=== PATIENT | female | born 1940 | race Caucasian/White ===

== ENCOUNTER → 2017-01-06 | Outpatient (CLI) | payer MEDICARE, BC ==
[2017-01-06 14:14] LABS: BASOPHILS # (AUTO) 0.1 T/MM3 (0-0.2); BASOPHILS % (AUTO) 0.8 % (0-2); EOSINOPHILS # (AUTO) 0.1 T/MM3 (0-0.5); EOSINOPHILS % (AUTO) 1.6 % (0-4); HCT - HEMATOCRIT 35.5 % (36-46); HGB - HEMOGLOBIN 11.7 GM/DL (12-16); IMMATURE GRANULOCYTE # (AUTO) 0.01 T/MM3 (0.00-0.03); IMMATURE GRANULOCYTE % (AUTO) 0.2 % (0.0-0.5); LYMPHOCYTES % (AUTO) 16.8 % (23-45); MEAN CORPUSCULAR HGB 32.3 UUG (26-34); MEAN CORPUSCULAR VOLUME 98.1 UM3 (80-100); MEAN PLATELET VOLUME 8.7 UM3 (9.4-12.4); MONOCYTES # (AUTO) 0.4 T/MM3 (0-0.8); MONOCYTES % (AUTO) 6.1 % (0-9.0); NEUTROPHILS #(AUTO)-ABSOLUTE 4.6 T/MM3 (1.8-7.7); NEUTROPHILS % (AUTO) 74.5 % (33-66); RED BLOOD COUNT 3.62 M/MM3 (4.00-5.20); WBC - WHITE BLOOD COUNT 6.2 T/MM3 (4.5-11.0)
[2017-01-06 14:23] LABS: ALBUMIN 4.2 G/DL (3.5-5.0); ALBUMIN/GLOBULIN RATIO 1.4 RATIO (1.1-2.2); ALKALINE PHOSPHATASE 54 U/L (38-126); ALT (SGPT) 19 U/L (9-52); ANION GAP 11 MEQ/L (5-15); AST (SGOT) 29 U/L (14-36); BUN/CREATININE RATIO 26 RATIO (6-26); CALCIUM 9.4 MG/DL (8.4-10.2); CHLORIDE 105 MEQ/L (98-107); CO2 - CARBON DIOXIDE 30 MEQ/L (22-30); CREATININE 0.8 MG/DL (0.7-1.2); GLOMERULAR FILTRATION RATE 70; GLUCOSE 105 MG/DL (65-110); LDH 479 U/L (313-618); MAGNESIUM 2.2 MG/DL (1.6-2.3); POTASSIUM 4.1 MEQ/L (3.6-5); SODIUM 146 MEQ/L (134-144); TOTAL PROTEIN 7.3 G/DL (6.3-8.2)
== END ==
LOC: LAB 13:36
PROVIDERS: ATTEND Internal Medicine Hematology & Oncology
DX: D50.8 Other iron deficiency anemias (principal)
CPT/HCPCS: 36415; 80053; 83615; 83735; 85025

== ENCOUNTER 2017-02-18 16:02 | Observation (INO) | payer MEDICARE, BC ==
[~2017-02-18] VITALS: Ht 154.9 cm; Wt 41.2 kg
--- NOTE | 2017-02-18 00:15 | NUR ---
Blood Transfusion Started first unit of PCs. Pt denies any s/s of transfusion reaction at this time. Vital signs stable. Will continue to monitor. Addendum: 02/19/17 at 1424 by AYLA BOWEN RN TIME OF THIS NOTE IS INCORRECT. TIME INTENDED TO BE NOTED AT 2105 ON 02/18/17.
[2017-02-18] MEDS ORDERED: ACETAMINOPHEN 325 MG TABLET PO PRN (16:30)
[2017-02-18] MEDS ORDERED: ONDANSETRON 4mg/2ml INJECTION IV PRN (16:30)
[2017-02-18] MEDS ORDERED: FUROSEMIDE 20 MG/2 ML INJECTION IV ONE (16:30)
[2017-02-18] MEDS ORDERED: DiphenhydrAMINE 25 MG CAPSULE PO ONE (16:30)
[2017-02-18] MEDS ORDERED: MILK OF MAGNESIA 30 ML SUSP PO PRN (16:30)
[2017-02-18] MEDS ORDERED: BISACODYL 10 MG SUPPOSITORY RECTALLY PRN (16:30)
--- NOTE | 2017-02-18 17:02 | HPPDOC ---
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 Hgb in December was 11.7. She has iron deficiency anemia, and received IV iron in August 2016. She was seen in Dr. Alba's office and her hgb was 6.8. She was minimally orthostatic with SBP dropping from 97 to 88 mm Hg. WBC was normal at 9.9; hct was 22.5; plt 559, retic was 4%. UA was negative for UTI. Chemistries: Na 144, K 3.7, CO2 27, BUN 19, Cr 0.8, glu 102, ca 9.1, LFTs normal, LDH 357. Past Medical History Past Medical History Patient's Medical History: (1) Iron deficiency anemia Current Medications Home Meds Reported Medications Cyanocobalamin/FA/Pyridoxine (Folbee Tablet) 1 Tab Tablet, DAILY 02/18/17 Gabapentin (Gabapentin) 100 Mg Capsule, 1 CAP PO TID, CAP 02/18/17 Carbidopa/Levodopa (Carbidopa-Levo ER 50-200 Tab) 1 Each Tablet.er, 1 TAB PO HS , TAB 02/18/17 Carbidopa/Levodopa (Carbidopa-Levo 25-250 mg Odt) 1 Each Tab.rapdis, 0.5 TAB PO Q4HPRN, TAB 02/18/17 Azithromycin (Zithromax) 250 Mg Tablet, 1 TAB PO DAILY, TAB TAKE TWO ON DAY ONE, THEN ONE TAB DAILY UNTIL ALL TAKEN. 02/18/17 Sennosides (Senokot) 8.6 Mg Tablet, 8.6 MG PO DAILY, TAB 02/18/17 Ca Carb/D3/Mag Ox/Redevelopment Manager/Will/Zn (Caltrate+D3 Plus Mineral Minis) 1 Each Tablet, DAILY 02/18/17 Ascorbic Acid (Vitamin C) 60 Mg Lozenge, DAILY 02/18/17 Cyanocobalamin (Vitamin B-12) (Vitamin B-12) 1,000 Mcg Tablet, 1 TAB PO DAILY, # 30 TAB 2 Refills 02/18/17 Aspirin (Aspir 81) 81 Mg Tablet.dr, 1 TAB PO DAILY, #30 TAB 5 Refills 02/18/17 Levothyroxine Sodium (Levothyroxine Sodium) 88 Mcg Tablet, 88 MCG PO ACB, TAB Once daily before breakfast. 02/18/17 Potassium Chloride (Potassium Chloride) 10 Meq Capsule.er, 10 MEQ PO WB, CAP Take 1 capsule, by mouth, daily with breakfast 02/18/17 Allergies: Coded Allergies: NKDA (Verified Allergy, Unknown, 02/18/17) Family History Family History: Will need clarification. Social History Social History Comments Heme/onc - Dr. Alba Review of Systems Unable to Obtain Comments Per Dr. Cote Physical Exam General Comments Per Dr. Cote Assessment & Plan Problems: (1) Iron deficiency anemia Status: Acute Plan/Intensity of Service Admit to observation status under the hospitalist service. Type and cross for 2 units PRBC. Will premedicate with Benadryl and give Lasix in between units. Obtain Hemoccult x3. Consult Dr. Alba. Will try to make arrangements for EGD/colonoscopy. Resume home meds. These preliminary orders were discussed with Dr. Cote and further orders will follow. DVT Prophylaxis: SCD'S Code Status Hospital Course Summary Disclaimer The hospital course summary below is not to be considered part of the above Progress Note. JUDY COTE MD 02/18/17 2002: Past Medical History Current Medications Home Meds Reported Medications Cyanocobalamin/FA/Pyridoxine (Folbee Tablet) 1 Tab Tablet, DAILY 02/18/17 Gabapentin (Gabapentin) 100 Mg Capsule, 1 CAP PO TID, CAP 02/18/17 Carbidopa/Levodopa (Carbidopa-Levo ER 50-200 Tab) 1 Each Tablet.er, 1 TAB PO HS , TAB 02/18/17 Carbidopa/Levodopa (Carbidopa-Levo 25-250 mg Odt) 1 Each Tab.rapdis, 0.5 TAB PO Q4HPRN, TAB 02/18/17 Azithromycin (Zithromax) 250 Mg Tablet, 1 TAB PO DAILY, TAB TAKE TWO ON DAY ONE, THEN ONE TAB DAILY UNTIL ALL TAKEN. 02/18/17 Sennosides (Senokot) 8.6 Mg Tablet, 8.6 MG PO DAILY, TAB 02/18/17 Ca Carb/D3/Mag Ox/Redevelopment Manager/Will/Zn (Caltrate+D3 Plus Mineral Minis) 1 Each Tablet, DAILY 02/18/17 Ascorbic Acid (Vitamin C) 60 Mg Lozenge, DAILY 02/18/17 Cyanocobalamin (Vitamin B-12) (Vitamin B-12) 1,000 Mcg Tablet, 1 TAB PO DAILY, # 30 TAB 2 Refills 02/18/17 Aspirin (Aspir 81) 81 Mg Tablet.dr, 1 TAB PO DAILY, #30 TAB 5 Refills 02/18/17 Levothyroxine Sodium (Levothyroxine Sodium) 88 Mcg Tablet, 88 MCG PO ACB, TAB Once daily before breakfast. 02/18/17 Potassium Chloride (Potassium Chloride) 10 Meq Capsule.er, 10 MEQ PO WB, CAP Take 1 capsule, by mouth, daily with breakfast 02/18/17 Allergies: Coded Allergies: NKDA (Verified Allergy, Unknown, 02/18/17) Assessment & Plan Problems: (1) Iron deficiency anemia Status: Acute (2) Restless leg syndrome (3) DDD (degenerative disc disease) (4) Hypothyroidism (5) Back pain (6) DJD (degenerative joint disease) Assessment HPI: Mrs. Plaza was seen with 3 children at bedside. She complains of having no energy for 3-4 months but denies any recognition of blood loss including black stools, hematochezia, hematuria, or hemoptysis. She reports occasional heartburn but indicates this is infrequent. Her appetite is okay although she's lost about 15-20 pounds over the past year which family members indicate they' ve attributed to of her about a year ago. The patient describes feeling dizzy when she stands or bends and was mildly orthostatic and Dr. Alba 's office today supine blood pressure 97/48 and upright blood pressure 88/53 with corresponding 8 point increase in pulse. The patient had a hemoglobin of 7.8 on 02/14/17 at which time iron level was 15 with iron saturation of 4% and ferritin was 26. Hemoglobin and Dr. Alba's office today had dropped to 6.[address] Alba reports past bone marrow biopsy demonstrated absent iron stores. PMH: Iron deficiency anemia, hypothyroidism, DJD/DDD with prior epidural steroid injections, restless leg syndrome, possible Parkinson's disease, chronic low blood pressure PSH: Bilateral cataract extractions in October and December 2016 SH: No alcohol, tobacco, or illicit drug use. The patient was about a year ago. FH: Son of metastatic bladder cancer, father of prostate cancer and diabetes, mother had Parkinson's disease with dementia, and several siblings had diabetes. ROS: 10 point review completed with patient describing significant back pain, numbness in her legs, irritability in her legs, and difficulty sleeping. She's had a recent cough for which she was treated with antibiotics with minimal residual cough. She has generalized arthralgias. She describes some weakness in her right leg which she attributes to back disease. She has occasional discomfort in the right upper quadrant associated with straining at bowel movement. Remainder of review of systems is as per history of present illness or negative. EXAM: General-slender female, uncomfortable and pacing in the room, alert. Temperature 96.4, blood pressure 118/58, pulse 91 HEENT-PERRL, EOMI without nystagmus, conjugate gaze, facial structures symmetric , oropharynx clear, neck supple and without adenopathy Lungs-respirations nonlabored, good airflow, breath sounds clear Cardiac-regular rhythm, S1-S2 Abd-soft, nontender, Christianson's sign negative and no mass palpable right upper quadrant or elsewhere in the abdomen, bowel sounds diminished but present Ext-without edema Skin-mild generalized hyperpigmentation without focal rash or ulceration Neuro-cranial nerves III through XII grossly intact, sensation intact to light touch 4 extremities, no tremor present at rest, motor tone normal, ambulating without assistance. Psych-slightly anxious A/P: Symptomatic anemia with 1 mg/dL drop over the past 4-5 days. No obvious blood loss. Transfuse 2 units packed red blood cells, check Hemoccults. CT abdomen/pelvis to exclude intra-abdominal pathology. Will need upper endoscopy as this is not been performed previously-had colonoscopy approximately one year ago which was negative per verbal report of Dr. Alba. Colonoscopy may need to be repeated but patient is opposed to consideration of the same currently. Initiate treatment with PPI as a precaution. Surgical consult in a.m. to facilitate EGD. Plan/Intensity of Service Discussed with Dr. Alba, outpatient records reviewed, discussed with Dr. Kemp. Laboratory data reviewed/ordered. Hospital Course Summary Hospital Course Summary 02/18/17 Symptomatic anemia with 1 mg/dL drop over the past 4-5 days. No obvious blood loss. Transfuse 2 units packed red blood cells, check Hemoccults. CT abdomen/pelvis to exclude intra-abdominal pathology. Will need upper endoscopy as this is not been performed previously-had colonoscopy approximately one year ago which was negative per verbal report of Dr. Alba. Colonoscopy may need to be repeated but patient is opposed to consideration of the same currently. Initiate treatment with PPI as a precaution. Surgical consult in a.m. to facilitate EGD. SHELL JOSEPH APRN February 18, 2017 16:23 JUDY COTE MD February 18, 2017 20:02
--- OUTSIDE RECORDS SUMMARY | 2017-02-18 17:28 | XMS REPORT | Summary of Care ---
Author Author Yoel العلي M.D. Organization Unknown Address [address], [place] [id number] Phone Unavailable Care Team Providers Care Hospital Orderly Name Role Phone Cheikh Chao D.O. Unavailable Unavailable Galdino العلي M.D. Unavailable Unavailable Cheikh Chao PP Unavailable Unavailable Unavailable Functional Status Functional Status Health Issues* Name Dates Details Functional status health issues are not documented Status: Cognitive Status Health Issues* Name Dates Details Cognitive status health issues are not documented Status: Problems Name Dates Details Joint Pain In The Right Hip Status: Active Diarrhea (787.91, R19.7) Status: Active Abdominal pain (789.00, R10.9) Status: Active Osteoporosis (733.00, M81.0) Status: Active Hypothyroidism (244.9, E03.9) Status: Active Acute sinusitis (461.9, J01.90) Status: Active Carpal tunnel syndrome (354.0, G56.00) Status: Active Hypokalemia (276.8, E87.6) Status: Active Lumbago (724.2, M54.5) Status: Active Primary localized osteoarthrosis of the hip, right (715.15, M16.11) Status: Active Hyperlipidemia (272.4, E78.5) Status: Active Bursitis of right hip (726.5, M70.71) Status: Active 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 Quantity: 225 Yoel العلي M.D.* Started 01-Dec-2009 ActiveLevothyroxine Sodium 100 MCG Oral Tablet take one tablet by mouth every day * Quantity: 90 Refills: 3 Cheikh Chao D.O.* Started 01-Dec-2009 ActiveSenokot 8.6 MG Oral Tablet TAKE 2 TABLET Bedtime * Refills: 0 Cheikh ChaoO.* Started 17-Nov-2011 ActiveProlia 60 MG/ML Subcutaneous Solution INJECT SUBCUTANEOUSLY 60 MG / 1 ML EVERY 6 MONTHS * Refills: 0 Cheikh Chao D.O.* Started 17-Nov-2011 ActivePotassium Chloride ER 10 MEQ Oral Capsule Extended Release TAKE ONE CAPSULE BY MOUTH EVERY DAY * Quantity: 90 Refills: 3 Cheikh Chao D.O.* Started 15-Feb-2012 Active Allergies and Adverse Reactions Name Dates Details No Known Drug Allergies Status: Active Past Medical History Name Dates Details History of abnormal weight loss (V13.89, Z87.898) Status: Resolved History of constipation (V12.79, Z87.19) Status: Resolved History of low back pain (V13.59, Z87.39) Status: Resolved History of Neck stiffness (723.5, M43.6) Status: Resolved History of Numbness (782.0, R20.0) Status: Resolved History of Pain in hand (729.5, M79.643) Status: Resolved History of Temporomandibular joint pain (524.62, M26.62) Status: Resolved History of thyroid disease (V12.29, Z86.39) Status: Resolved History of Visual impairment (369.9, H54.7) Status: Resolved Procedures Procedure Dates Details History of Dilation And Curettage History of Hand Surgery History of Tonsillectomy Procedures not documented Immunization Name Dates Details Immunizations not documented Family History Mother* Name Dates Details Family history of Parkinson Disease Status: Active Father* Name Dates Details Family history of Prostate Cancer (V16.42) Status: Active Family history of Diabetes Mellitus (V18.0) Status: Active Sister* Name Dates Details Family history of Diabetes Mellitus (V18.0) Status: Active Family history of Restless Legs Syndrome Status: Active Brother* Name Dates Details Family history of Diabetes Mellitus (V18.0) Status: Active Social History Name Dates Details Smoking Status* Never smoker Vital Signs Date Test Result Details 20-Dec-2014 09:22 BP Systolic 124 mm[Hg] Status: BP Diastolic 68 mm[Hg] Status: Heart Rate 60 /min Status: Weight 92.4 lb Status: Body Mass Index Calculated 18.05 kg/m2 Status: Body Surface Area Calculated 1.34 m2 Status: Results Date Description Value Details Results not documented Plan of Care Planned Observations* Name Dates Details Planned Goals not documented Goal Planned Encounters* Appointment; Provider: Yoel العلي On 23-Jun-2015 10:45 Instructions * Instructions not documented Encounters Appointment; Yoel العلي Encounter Diagnosis: Problem not documented On 20-Dec-2014 09:30 Appointment; Yoel العلي Encounter Diagnosis: Problem not documented On 21-Jun-2014 09:00 Appointment; Cheikh Chao Encounter Diagnosis: Problem not documented On 21-Jan-2014 09:00 Appointment; Neel Coleman Encounter Diagnosis: Problem not documented On 07-Jan-2014 13:45 Appointment; Cheikh Chao Encounter Diagnosis: Problem not documented On 21-Dec-2013 10:15 Appointment; Cheikh Chao Encounter Diagnosis: Problem not documented On 07-Dec-2013 08:45 Appointment; Yoel العلي Encounter Diagnosis: Problem not documented On 23-Nov-2013 09:00 Appointment; Cheikh Chao Encounter Diagnosis: Problem not documented On 08-Oct-2013 10:45 Appointment; Cheikh Chao Encounter Diagnosis: Problem not documented On 06-Aug-2013 11:00 Appointment; Yoel العلي Encounter Diagnosis: Problem not documented On 23-May-2013 08:45 Appointment; Yoel العلي Encounter Diagnosis: Problem not documented On 11:45 Appointment; Yoel العلي Encounter Diagnosis: Problem not documented On 27-Feb-2013 16:00
--- OUTSIDE RECORDS SUMMARY | 2017-02-18 17:28 | XMS REPORT | Summary of Care ---
Author Author Saba Buchanan DPM Organization Unknown Address [address], [place] [id number] Phone Unavailable Care Team Providers Care Project Management Name Role Phone Stephanie Bear M.D. Unavailable Unavailable Cheikh Chao D.O. Unavailable Unavailable Saba Buchanan DPM Unavailable Unavailable Galdino العلي M.D. Unavailable Unavailable Jose Bear Unavailable Unavailable Unavailable Unavailable Functional Status Name Dates Details Functional status health issues are not documented Status: Name Dates Details Cognitive status health issues are not documented Status: Problems Name Dates Details Joint Pain In The Right Hip Status: Active Osteoporosis (733.00, M81.0) Status: Active Hypothyroidism (244.9, E03.9) Status: Active Carpal tunnel syndrome (354.0, G56.00) [...] Sensorineural hearing loss (389.10, H90.5) Status: Active Degenerative disc disease, lumbar (722.52, M51.36) Status: Active Contact dermatitis due to plant (692.6, L25.5) Status: Active Pruritic dermatitis (698.9, L29.9) Status: Active Restless leg syndrome, controlled (333.94, G25.81) Status: Active 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, 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 High risk medication use (V58.69, Z79.899) Status: Active Pain of toe of right foot (729.5, M79.674) Status: Active Bacterial infection of finger or toe (686.9, L08.9) Status: Active Ingrowing nail (703.0, L60.0) Status: Active Dermatophytosis, nail (110.1, B35.1) Status: Active Pain of toe of left foot (729.5, M79.675) Status: Active Difficulty in walking (719.7, R26.2) Status: Active Callus of foot (700, L84) Status: Active Medications Name Dates Details Carbidopa-Levodopa 25-250 MG Oral Tablet Take 1 tab at 7 am and 1/2 tab at 1pm and 7 pm, may repeat one at bedtime or during the night as needed. Quantity: 240 Yoel العلي M.D. Start 01-Dec-2009 Active Levothyroxine Sodium 75 MCG Oral Tablet TAKE 1 TABLET DAILY. * Refills: 0 Jose Bear M.D. Start 01-Dec-2009 Active Senokot 8.6 MG Oral Tablet TAKE 2 TABLET Bedtime * Refills: 0 Cheikh Chao D.O. * Start 17-Nov-2011 Active Prolia 60 MG/ML Subcutaneous Solution INJECT SUBCUTANEOUSLY 60 MG / 1 ML EVERY 6 MONTHS * Refills: 0 Cheikh Chao D.O. * Start 17-Nov-2011 Active Potassium Chloride ER 10 MEQ Oral Capsule Extended Release TAKE ONE CAPSULE BY MOUTH ONCE DAILY * Quantity: 90 Refills: 0 Jose Bear M.D. Start Active TraMADol HCl - 50 MG Oral Tablet TAKE ONE TABLET BY MOUTH EVERY 6 HOURS NEEDED FOR PAIN * Quantity: 30 Refills: 0 Cheikh Chao D.O. Start 23-Jan-2015 Active Iron 240 (27 Fe) MG Oral Tablet Take 1 tablet twice daily * Refills: 0 Yoel العلي M.D. Start 22-Dec-2015 Active Cefadroxil 500 MG Oral Capsule TAKE 1 CAPSULE TWICE DAILY. * Quantity: 28 Refills: 0 Saba Buchanan DPM * Start 10-Feb-2016 Active Terbinafine HCl - 250 MG Oral Tablet TAKE ONE TABLET BY MOUTH ONCE DAILY * Quantity: 90 Refills: 0 Saba Buchanan DPM * Start 15-Jun-2016 Active Allergies and Adverse Reactions Name Dates Details No Known Drug Allergies (Allergy) Status: Active Past Medical History Name Dates [...] Dates Details Immunizations not documented Family History Name Dates Details Family history of Parkinson Disease Status: Active Name Dates Details Family history of Prostate Cancer (V16.42) Status: Active Family history of Diabetes Mellitus (V18.0) Status: Active Name Dates Details Family history of Diabetes Mellitus (V18.0) Status: Active Family history of Restless Legs Syndrome Status: Active Name Dates Details Family history of Diabetes Mellitus (V18.0) Status: Active Social History Name Dates Details - Status: Name Dates Details Never smoker Vital Signs Date Test Result Details No Known Vitals to report Results Date Description Value Details Results not documented Plan of Care Name Dates Details Planned Observations Planned Goals not documented Planned Encounters Appointment; Provider: Yoel العلي M.D. On 23-Jun-2016 11:45 Interventions Provided Medication Changes* Terbinafine HCl - 250 MG Oral Tablet - Renew Instructions Name Dates Details Instructions not documented Encounters Appointment; Saba Buchanan DPM Encounter Diagnosis: Problem not documented On 20-Feb-2016 14:30 Appointment; Saba Buchanan DPM Encounter Diagnosis: Problem not documented On 04-Feb-2016 14:00 Appointment; Yoel العلي M.D. Encounter Diagnosis: Problem not documented On 22-Dec-2015 11:45 Appointment; Lonnie Choi D.O. Encounter Diagnosis: Problem not documented On 24-Jul-2015 08:55 Appointment; Yoel العلي M.D. Encounter Diagnosis: Problem not documented On 23-Jun-2015 10:45 Appointment; Cheikh Chao D.O. Encounter Diagnosis: Problem not documented On 03-Jun-2015 09:30 Appointment; Cheikh Chao D.O. Encounter Diagnosis: Problem not documented On 04-Mar-2015 10:30 Appointment; Cheikh Chao D.O. Encounter Diagnosis: Problem not documented On 06-Feb-2015 10:15 Appointment; Cheikh Chao D.O. Encounter Diagnosis: Problem not documented On 23-Jan-2015 11:00 Appointment; Parvez Booth M.D. Encounter Diagnosis: Problem not documented On 15-Jan-2015 14:00 Appointment; Cheikh Chao D.O. Encounter Diagnosis: Problem not documented On 09-Jan-2015 13:15 Appointment; Yoel العلي M.D. Encounter Diagnosis: Problem not documented On 20-Dec-2014 09:30 Appointment; Yoel العلي M.D. Encounter Diagnosis: Problem not documented On 21-Jun-2014 09:00
--- OUTSIDE RECORDS SUMMARY | 2017-02-18 17:28 | XMS REPORT | Summary of Care ---
Author Author Neel Coleman M.D. Unknown Address Unknown Phone Unavailable Care Team Providers Care Business Communications Instructor Name Role Phone Chema Montoya, Stephanie Unavailable Unavailable Mirza Montoya, Isabel Unavailable Unavailable Cheikh Chao D.O. Unavailable Unavailable Chanel JALLOH, Saba Unavailable Unavailable Jared Montoya, Silvia Unavailable Unavailable Zohra Montoya, Galdino Unavailable Unavailable No Assigned PCP-Pt Confirmed Unavailable Unavailable Unavailable Unavailable Functional Status Name [...] Status: Active Insomnia (780.52, G47.00) Status: Active Degenerative disc disease, lumbar (722.52, M51.36) Status: Active Contact dermatitis due to plant (692.6, L25.5) Status: Active Pruritic dermatitis (698.9, L29.9) Status: Active High risk medication use (V58.69, Z79.899) Status: Active Pain of toe of right foot (729.5, M79.674) Status: Active Bacterial infection of finger or toe (686.9, L08.9) Status: Active Ingrowing nail (703.0, L60.0) Status: Active Dermatophytosis, nail (110.1, B35.1) Status: Active Pain of toe of left foot (729.5, M79.675) Status: Active Callus of foot (700, L84) Status: Active 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, 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 Difficulty in walking (719.7, R26.2) Status: Active Restless leg syndrome, controlled (333.94, G25.81) Status: Active Iron deficiency anemia (280.9, D50.9) Status: Active Acute sinusitis (461.9, J01.90) Status: Active Eustachian tube dysfunction (381.81, H69.80) Status: Active Sinus problem (473.9, J34.9) Status: Active Eye problem (V41.1, H57.9) Status: Active Environmental allergies (V15.09, Z91.09) Status: Active Hoarseness (784.42, R49.0) Status: Active Sensorineural hearing loss, bilateral (389.18, H90.3) Status: Active Tinnitus (388.30, H93.19) Status: Active Bilateral hearing loss due to cerumen impaction (389.8, H61.23) Status: Active Nasal congestion (478.19, R09.81) Status: Active Medications Name Dates Details Carbidopa-Levodopa 25-250 MG Oral Tablet Take 1/2 tab every 4 hours. Quantity: 180 Yoel العلي M.D. * Start 01-Dec-2009 Active Levothyroxine Sodium 75 MCG [...] CAPSULE BY MOUTH ONCE DAILY * Quantity: 1 Refills: 1 Jose Bear M.D. * Start 15-Feb-2012 Active 90 Capsule Extended Release Bottle Terbinafine HCl - 250 MG Oral Tablet TAKE ONE TABLET BY MOUTH ONCE DAILY * Quantity: 90 Refills: 0 Saba Buchanan DPM * Start 15-Jun-2016 Active Ferrous Sulfate 325 (65 Fe) MG Oral Tablet TAKE 1 TABLET TWICE DAILY. * Refills: 0 * Start 23-Jun-2016 Active Calcium Plus Vitamin D3 600-500 MG-UNIT Oral Capsule take 1 capsule daily * Refills: 0 * Start 23-Jun-2016 Active B-12 500 MCG Oral Tablet TAKE 1 TABLET DAILY. * Refills: 0 * Start 23-Jun-2016 Active Vitamin C 500 MG Oral Capsule TAKE 1 CAPSULE DAILY. * Refills: 0 * Start 23-Jun-2016 Active Magnesium 250 MG Oral Tablet TAKE 1 TABLET DAILY. * Refills: 0 * Start 23-Jun-2016 Active Carbidopa-Levodopa ER 50-200 MG Oral Tablet Extended Release TAKE 1 TABLET Bedtime * Quantity: 30 Refills: 5 Yoel العلي M.D. * Start 23-Jun-2016 Active Amoxicillin 500 MG Oral Capsule TAKE 1 CAPSULE 3 TIMES DAILY UNTIL GONE. * Quantity: 30 Refills: 0 Kristian Blue M.D. * Start 12-Oct-2016 End 22-Oct-2016 Active PredniSONE 10 MG Oral Tablet TAKE 4 TABLETS DAILY FOR 2 DAYS,3 TABLETS DAILY FOR 2 DAYS, 2 TABLETS DAILY FOR 2 DAYS AND 1 TABLET DAILY FOR 2 DAYS, THEN STOP. * Quantity: 20 Refills: 0 Kristian Blue M.D. * Start 12-Oct-2016 Active Allergies and Adverse Reactions Name Dates [...] hand (729.5, M79.643) Status: Resolved History of Sensorineural hearing loss (389.10, H90.5) Status: Resolved History of Temporomandibular joint pain (524.62, M26.629) Status: Resolved History of thyroid disease (V12.29, Z86.39) Status: Resolved History of Visual impairment (369.9, H54.7) Status: Resolved Procedures Procedure Dates Details History of Dilation And Curettage History of Hand Surgery History of Tonsillectomy Procedures not documented Immunization Name Dates Details Immunizations not documented Family History Name Dates Details Family history of thyroid disease (V18.19, Z83.49) Comments: Family History Status: Active Name Dates Details Family history of Parkinson [...] smoker Vital Signs Date Test Result Details 21-Oct-2016 11:11 Temperature 97.4 f Status: Comments: Method: Heart Rate 74 /min Status: Comments: Location: ; Weight 92 lb Status: Body Mass Index Calculated 17.97 kg/m2 Status: Body Surface Area Calculated 1.34 m2 Status: 12-Oct-2016 15:57 BP Systolic 110 mm[Hg] Status: BP Diastolic 68 mm[Hg] Status: Temperature 97.9 f Status: Comments: Method: Heart Rate 77 /min Status: Comments: Location: ; Physical Findings 97 Status: Comments: O2 Saturation Results Date Description Value Details Results not documented Plan of Care Name Dates Details Planned Observations Planned Goals not documented Planned Encounters Appointment; Provider: Yoel العلي M.D. On 05-Jan-2017 10:45 Instructions Name Dates Details Instructions not documented Encounters Appointment; Kristian Blue M.D. Encounter Diagnosis: Problem not documented On 12-Oct-2016 15:10 Appointment; Yoel العلي M.D. Encounter Diagnosis: Problem not documented On 23-Jun-2016 11:45 Appointment; Saba Buchanan DPM Encounter Diagnosis: Problem [...]
--- OUTSIDE RECORDS SUMMARY | 2017-02-18 17:29 | XMS REPORT | Summary of Care ---
Author Author Cheikh Chao D.O. Organization Unknown Address [address], [place] [id number] Phone Unavailable Care Team Providers Care Unix Administrator Name Role Phone Cheikh Chao D.O. Unavailable [...] Active Peripheral neuropathy (356.9, G62.9) Status: Active Lower back pain (724.2, M54.5) Status: Active Medications Name Dates Details Carbidopa-Levodopa 25-250 MG Oral Tablet Take 1 tab at 7 am and 1/2 tab at 1pm and 7 pm, february repeat one at bedtime or during the night as needed. Quantity: 225 Yoel العلي M.D.* Started 01-Dec-2009 ActiveLevothyroxine Sodium 100 MCG Oral Tablet take one tablet by mouth every day * Quantity: 90 Refills: 3 Cheikh Chao D.O.* Started 01-Dec-2009 ActiveSenokot 8.6 MG Oral Tablet TAKE 2 TABLET Bedtime * Refills: 0 Cheikh Chao.Kelley.* Started 17-Nov-2011 ActiveProlia 60 MG/ML Subcutaneous Solution INJECT SUBCUTANEOUSLY 60 MG / 1 ML EVERY 6 MONTHS * Refills: 0 Cheikh Chao D.O.* Started 17-Nov-2011 ActivePotassium Chloride ER 10 MEQ Oral Capsule Extended Release TAKE ONE CAPSULE BY MOUTH EVERY DAY * Quantity: 90 Refills: 3 Cheikh Chao D.O.* Started 15-Feb-2012 ActivePredniSONE 20 MG Oral Tablet Take 3 Tabs X's 3 DaysTake 2 Tabs X's 3 DaysTake 1 Tabs X's 3 Days * Quantity: 18 Refills: 0 Cheikh Chao.Kelley.* Started 09-Jan-2015 ActiveCyclobenzaprine HCl - 10 MG Oral Tablet TAKE 1 TABLET AT BEDTIME. * Quantity: 7 Refills: 0 Cheikh Chao.Kelley.* Started 09-Jan-2015 ActiveAcetaminophen-Codeine #3 300-30 MG Oral Tablet TAKE 1 TABLET EVERY 6 HOURS NEEDED FOR PAIN. * Quantity: 30 Refills: 0 Cheikh Chao.Kelley.* Started 09-Jan-2015 ActiveTraMADol HCl - 50 MG Oral Tablet TAKE 1 TABLET EVERY 6 HOURS NEEDED FOR PAIN. * Quantity: 30 Refills: 0 Cheikh Chao D.O.* Started 23-Jan-2015 Active Allergies and Adverse Reactions Name Dates [...] History of Hand Surgery History of Tonsillectomy XRay SPINE-LUMBAR Ordered:23-Jan-2015 MRI LUMBAR SPINE Ordered:23-Jan-2015 Immunization Name Dates Details Immunizations not documented [...] smoker Vital Signs Date Test Result Details 23-Jan-2015 10:48 BP Systolic 110 mm[Hg] Status: BP Diastolic 66 mm[Hg] Status: Heart Rate 60 /min Status: Weight 91.125 lb Status: Body Mass Index Calculated 17.8 kg/m2 Status: Body Surface Area Calculated 1.34 m2 Status: 09-Jan-2015 13:08 BP Systolic 126 mm[Hg] Status: BP Diastolic 62 mm[Hg] Status: Heart Rate 78 /min Status: Weight 93 lb Status: Body Mass Index Calculated 18.16 kg/m2 Status: Body Surface Area Calculated 1.35 m2 Status: Results Date Description Value Details Results not documented Plan of Care Planned Observations* Name Dates Details Planned Goals not documented Goal Planned Encounters* Appointment; Provider: Yoel العلي On 23-Jun-2015 10:45 * Appointment; Provider: Cheikh Chao On 06-Feb-2015 10:15 Instructions * Instructions not documented Encounters Appointment; Cheikh Chao Encounter Diagnosis: Problem not documented On 23-Jan-2015 11:00 Appointment; Parvez Booth Encounter Diagnosis: Problem not documented On 15-Jan-2015 14:00 Appointment; Cheikh Chao Encounter Diagnosis: Problem not documented On 09-Jan-2015 13:15 Appointment; Yoel العلي Encounter Diagnosis: Problem not documented On 20-Dec-2014 09:30 Appointment; Yoel العلي Encounter Diagnosis: Problem not documented On 21-Jun-2014 09:00 Appointment; Cheikh Chao Encounter Diagnosis: Problem not documented On 21-Jan-2014 09:00 Appointment; Neel Coleman Encounter Diagnosis: Problem not documented On 07-Jan-2014 13:45 Appointment; Cheikh Chao Encounter Diagnosis: Problem not documented On 21-Dec-2013 10:15 Appointment; Chiekh Chao Encounter Diagnosis: Problem not documented On [...]
--- OUTSIDE RECORDS SUMMARY | 2017-02-18 17:29 | XMS REPORT | Summary of Care ---
Author Author Chanel JALLOH, [employer] Organization Unknown Address [address], [place] [id number] Phone Unavailable Care Team Providers Care Export Traffic Department Manager Name Role Phone Stephanie Bear M.D. Unavailable Unavailable Cheikh Chao D.O. Unavailable Unavailable Galdino العلي M.D. Unavailable Unavailable Jose Bear PP Unavailable Unavailable Unavailable Functional Status Functional [...] risk medication use (V58.69, Z79.899) Status: Active Dermatophytosis, nail (110.1, B35.1) Status: Active Ingrowing nail (703.0, L60.0) Status: Active Pain of toe of left foot (729.5, M79.675) Status: Active Pain of toe of right foot (729.5, M79.674) Status: Active Difficulty in walking (719.7, R26.2) Status: Active Medications Name Dates Details Carbidopa-Levodopa 25-250 MG Oral Tablet Take 1 tab at 7 am and 1/2 tab at 1pm and 7 pm, may repeat one at bedtime or during the night as needed. Quantity: 240 Yoel العلي M.D.* Started 01-Dec-2009 ActiveLevothyroxine Sodium 75 MCG Oral Tablet TAKE 1 TABLET DAILY. * Refills: 0 Jose Bear M.D.* Started 01-Dec-2009 ActiveSenokot 8.6 MG Oral Tablet TAKE 2 TABLET Bedtime * Refills: 0 Cheikh Chao D.O.* Started 17-Nov-2011 ActiveProlia 60 MG/ML Subcutaneous Solution INJECT SUBCUTANEOUSLY 60 MG / 1 ML EVERY 6 MONTHS * Refills: 0 Cheikh Chao D.O.* Started 17-Nov-2011 ActivePotassium Chloride ER 10 MEQ Oral Capsule Extended Release TAKE ONE CAPSULE BY MOUTH ONCE DAILY * Quantity: 90 Refills: 0 Jose Bear M.D.* Started 15-Feb-2012 ActiveTraMADol HCl - 50 MG Oral Tablet TAKE ONE TABLET BY MOUTH EVERY 6 HOURS NEEDED FOR PAIN * Quantity: 30 Refills: 0 Cheikh Chao D.O.* Started 23-Jan-2015 ActiveIron 240 (27 Fe) MG Oral Tablet Take 1 tablet twice daily * Refills: 0 Yoel العلي M.D.* Started 22-Dec-2015 Active Allergies and Adverse Reactions Name Dates [...] to report Results Date Description Value Details 09-Feb-2016 13:52 LIVER PROFILE 1215 ALK PHOSPHATASE 66 U/L (Better) Range: 46-116 TOTAL BILIRUBIN 0.60 mg/dL (Better) Range: 0.20-1.00 DIRECT BILIRUBIN 0.10 mg/dL (Better) Range: 0.00-0.20 AST 14 U/L (Better) Range: 8-35 ALT 9 U/L (Below low threshold) Range: 14-59 Comments: Please note new reference ranges. Effective 12/19/2014.----- ALBUMIN 3.7 g/dL (Better) Range: 3.4-5.0 TOTAL PROTEIN 7.1 g/dL (Better) Range: 6.4-8.2 Plan of Care Planned Observations* Name Dates Details Planned Goals not documented Goal Planned Encounters* Appointment; Provider: Yoel العلي On 23-Jun-2016 11:45 * Appointment; Provider: Saba Buchanan On 20-Feb-2016 14:30 * Appointment; Provider: Schedule Radiology On 17-Jun-2015 11:20 Instructions * Instructions not documented Encounters Appointment; Saba Buchanan Encounter Diagnosis: Problem not documented On 04-Feb-2016 14:00 Appointment; Yoel العلي Encounter Diagnosis: Problem not documented On 22-Dec-2015 11:45 Appointment; Lonnie Choi Encounter Diagnosis: Problem not documented On 24-Jul-2015 08:55 Appointment; Yoel العلي Encounter Diagnosis: Problem not documented On 23-Jun-2015 10:45 Appointment; Cheikh Chao Encounter Diagnosis: Problem not documented On 03-Jun-2015 09:30 Appointment; Cheikh Chao Encounter Diagnosis: Problem not documented On 04-Mar-2015 10:30 Appointment; Cheikh Chao Encounter Diagnosis: Problem not documented On 06-Feb-2015 10:15 Appointment; Cheikh Chao Encounter Diagnosis: Problem not documented On 23-Jan-2015 11:00 Appointment; Parvez Booth Encounter Diagnosis: Problem not documented On 15-Jan-2015 14:00 Appointment; Cheikh Chao Encounter Diagnosis: Problem not documented On 09-Jan-2015 13:15 Appointment; Yoel العلي Encounter Diagnosis: Problem not documented On 20-Dec-2014 09:30 Appointment; Yoel العلي Encounter Diagnosis: Problem not documented On 21-Jun-2014 09:00
--- OUTSIDE RECORDS SUMMARY | 2017-02-18 17:29 | XMS REPORT | Continuity of Care Document ---
Author Author [facility] Organization [facility] Address Unknown Phone Unavailable Allergies Active Description Code Type Severity Reaction Onset Reported/Identified Relationship to Patient Clinical Status Yes No Known Allergies [id number] N/A N/A Medications Problems Date Dx Coded Attending Type Code Diagnosis Diagnosed By 07/16/2015 W 564.00 Constipation 07/16/2015 W 733.90 Osteopenia 07/16/2015 W V64.06 Vaccination not carried out because of patient refusal 07/16/2015 W V72.31 Gynecological Examination 07/16/2015 W V76.12 Screening for breast cancer - low risk 07/24/2015 W 564.00 Constipation 07/24/2015 W 733.90 Osteopenia 07/24/2015 W V64.06 Vaccination not carried out because of patient refusal 07/24/2015 W V72.31 Gynecological Examination 07/24/2015 W V76.12 Screening for breast cancer - low risk 01/16/2016 W 564.00 Constipation 01/16/2016 W 733.90 Osteopenia 01/16/2016 W V64.06 Vaccination not carried out because of patient refusal 01/16/2016 W V72.31 Gynecological Examination 01/16/2016 W V76.12 Screening for breast cancer - low risk 07/22/2016 W 564.00 Constipation 07/22/2016 W 733.90 Osteopenia 07/22/2016 W V64.06 Vaccination not carried out because of patient refusal 07/22/2016 W V72.31 Gynecological Examination 07/22/2016 W V76.12 Screening for breast cancer - low risk 02/08/2017 W 564.00 Constipation 02/08/2017 W 733.90 Osteopenia 02/08/2017 W V64.06 Vaccination not carried out because of patient refusal 02/08/2017 W V72.31 Gynecological Examination 02/08/2017 W V76.12 Screening for breast cancer - low risk 02/08/2017 W Z01.419 Encntr for commercial intelligence manager exam (general) (routine) w/o abn findings 02/16/2017 W G25.81 Restless leg syndrome 02/16/2017 W M85.9 Osteopenia 02/16/2017 W Z01.419 Gynecologic examination - routine 02/16/2017 W Z12.31 Screening for breast cancer Procedures Code [place] [address] THER/PROPH/DIAG INJ SC/IM 07/23/2014 76043 OFFICE/OUTPATIENT VISIT EST 07/23/2014 J0897 Prolia Injection 60 mg/1 mL 07/23/2014 [id number] Telephone Call [phone] Telephone Call [phone] Telephone Call G0101 CA screen;pelvic/breast exam 02/08/2017 Results Encounters ACCT No. Visit Date/Time Discharge Status Pt. Type Provider Facility Loc./Unit Complaint [id number] 02/15/2017 10:00:00 [facility]
--- OUTSIDE RECORDS SUMMARY | 2017-02-18 17:29 | XMS REPORT | Summary of Care ---
Author Author Yoel العلي M.D. Unknown Address [address] [place], [place] [id number] Phone Unavailable Care Team Providers Care Mortuary Technician Name Role Phone Stephanie Bera M.D. Unavailable Unavailable Cheikh Chao D.O. 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 Medications Name Dates Details Carbidopa-Levodopa [...] smoker Vital Signs Date Test Result Details 22-Dec-2015 11:48 BP Systolic 100 mm[Hg] Status: BP Diastolic 62 mm[Hg] Status: Heart Rate 64 /min Status: Weight 94.6 lb Status: Body Mass Index Calculated 18.48 kg/m2 Status: Body Surface Area Calculated 1.36 m2 Status: Results Date Description Value Details Results not documented Plan of Care Planned Observations* Name Dates Details Planned Goals not documented Goal Planned Encounters* Appointment; Provider: Yoel العلي On 23-Jun-2016 11:45 * Appointment; Provider: Schedule Radiology On 17-Jun-2015 [...]
--- OUTSIDE RECORDS SUMMARY | 2017-02-18 17:29 | XMS REPORT | Summary of Care ---
Author Author Cheikh Chao D.O. Organization Unknown Address [address], [place] [id number] Phone Unavailable Care Team Providers Care Nursing Resident Name Role Phone Cheikh Chao D.O. Unavailable [...] Lower back pain (724.2, M54.5) Status: Active Low back pain (724.2, M54.5) Status: Active Degenerative disc disease, lumbar (722.52, M51.36) Status: Active Medications Name Dates Details Carbidopa-Levodopa 25-250 MG Oral Tablet Take 1 tab at 7 am and 1/2 tab at 1pm and 7 pm, may repeat one at bedtime or during the night as needed. Quantity: 225 Yoel العلي M.D.* Started 01-Dec-2009 ActiveLevothyroxine Sodium 100 MCG Oral Tablet take one tablet by mouth every day * Quantity: 90 Refills: 3 Cheikh Chao.Kelley.* Started 01-Dec-2009 ActiveSenokot 8.6 MG Oral Tablet TAKE 2 TABLET Bedtime * Refills: 0 Cheikh Chao.Kelley.* Started 17-Nov-2011 ActiveProlia 60 MG/ML Subcutaneous Solution INJECT SUBCUTANEOUSLY 60 MG / 1 ML EVERY 6 MONTHS * Refills: 0 Cheikh Chao.Kelley.* Started 17-Nov-2011 ActivePotassium Chloride ER 10 MEQ Oral Capsule Extended Release TAKE ONE CAPSULE BY MOUTH EVERY DAY * Quantity: 90 Refills: 3 Cheikh Chao.Kelley.* Started 15-Feb-2012 ActiveAcetaminophen-Codeine #3 300-30 MG Oral Tablet TAKE 1 TABLET EVERY 6 HOURS NEEDED FOR PAIN. * Quantity: 30 Refills: 0 Cheikh Chao.Kelley.* Started 09-Jan-2015 ActiveCyclobenzaprine HCl - 10 MG Oral Tablet TAKE 1 TABLET AT BEDTIME. * Quantity: 7 Refills: 0 Cheikh Chao.Kelley.* Started 09-Jan-2015 ActiveTraMADol HCl - 50 MG Oral Tablet TAKE ONE TABLET BY MOUTH EVERY 6 HOURS NEEDED FOR PAIN * Quantity: 30 Refills: 0 Cheikh Chao.O.* Started 23-Jan-2015 Active Allergies and Adverse Reactions [...] History of Hand Surgery History of Tonsillectomy THYROID STIM. HORMONE 3602 Ordered:03-Jun-2015 FREE T4 3604 Ordered:03-Jun-2015 LIPID PROFILE 1184 Ordered:03-Jun-2015 Comprehensive Metabolic Panel 1212 Ordered:03-Jun-2015 MAMMOGRAM-SCREENING Ordered:03-Jun-2015 Immunization Name Dates Details Immunizations not documented [...] smoker Vital Signs Date Test Result Details 03-Jun-2015 09:58 BP Systolic 120 mm[Hg] Status: BP Diastolic 58 mm[Hg] Status: Heart Rate 72 /min Status: Weight 88 lb Status: Body Mass Index Calculated 17.19 kg/m2 Status: Body Surface Area Calculated 1.32 m2 Status: Results Date Description Value Details [...]
--- OUTSIDE RECORDS SUMMARY | 2017-02-18 17:29 | XMS REPORT | Summary of Care ---
Author Author Lonnie Choi D.O. Organization Unknown Address [address] [place], [place] [phone] Phone Unavailable Care Team Providers Care Public Area Attendant Name Role Phone Stephanie Bear M.D. Unavailable Unavailable Cheikh Chao D.O. Unavailable Unavailable Isabel Choi D.O. Unavailable Unavailable Zohra Montoya, Galdino Unavailable Unavailable Jose Bear PP Unavailable Unavailable [...] disc disease, lumbar (722.52, M51.36) Status: Active Restless leg syndrome, controlled (333.94, G25.81) Status: Active Peripheral sensory neuropathy (356.9, G62.9) Status: Active Contact dermatitis due to plant (692.6, L25.5) Status: Active Pruritic dermatitis (698.9, L29.9) Status: Active Medications Name Dates Details Carbidopa-Levodopa 25-250 MG Oral Tablet Take 1 tab at 7 am and 1/2 tab at 1pm and 7 pm, may repeat one at bedtime or during the night as needed. Quantity: 225 Yoel العلي M.D.* Started 01-Dec-2009 ActiveLevothyroxine Sodium 100 MCG Oral Tablet TAKE ONE TABLET BY MOUTH ONCE DAILY * Quantity: 90 Refills: 0 Jose Bear M.D.* Started 01-Dec-2009 [...] MOUTH EVERY DAY * Quantity: 90 Refills: 0 Jose Bear M.D.* Started 15-Feb-2012 ActiveTraMADol HCl - 50 MG Oral Tablet TAKE ONE TABLET BY MOUTH EVERY 6 HOURS NEEDED FOR PAIN * Quantity: 30 Refills: 0 Cheikh Chao D.O.* Started 23-Jan-2015 ActiveCetirizine HCl - 10 MG Oral Tablet TAKE 1 TABLET Every twelve hours PRN * Quantity: 1 Refills: 0 Lonnie Choi D.O.* Started 24-Jul-2015 Ended 25-Jul-2015 ActivePredniSONE 20 MG Oral Tablet TAKE 1 TABLET Every twelve hours * Quantity: 14 Refills: 0 Lonnie Choi D.O.* Started 24-Jul-2015 Ended 31-Jul-2015 Active Allergies and Adverse Reactions Name Dates [...] smoker Vital Signs Date Test Result Details 24-Jul-2015 09:07 BP Systolic 125 mm[Hg] Status: BP Diastolic 64 mm[Hg] Status: Temperature 98.4 f Status: Heart Rate 70 /min Status: O2 SAT 98 % Status: Results Date Description Value Details Results not documented Plan of Care Planned Observations* Name Dates Details Planned Goals not documented Goal Planned Encounters* Appointment; Provider: Yoel العلي On 22-Dec-2015 11:45 * Appointment; Provider: Schedule Radiology On 17-Jun-2015 11:20 Instructions * Instructions not documented Encounters Appointment; Lonnie Choi Encounter Diagnosis: Problem not [...]
--- OUTSIDE RECORDS SUMMARY | 2017-02-18 17:29 | XMS REPORT | Summary of Care ---
Author Author Cheikh Chao D.O. Organization Unknown Address [address], [place] [id number] Phone Unavailable Care Team Providers Care Bush And Vine Fruit Crop Farmer Name Role Phone Cheikh Chao D.O. Unavailable [...] Active Peripheral neuropathy (356.9, G62.9) Status: Active Low back pain (724.2, M54.5) Status: Active Degenerative disc disease, lumbar (722.52, M51.36) Status: Active Lower back pain (724.2, M54.5) [...] day * Quantity: 90 Refills: 3 Cheikh Chao.O.* Started 01-Dec-2009 ActiveSenokot 8.6 MG Oral Tablet TAKE 2 TABLET Bedtime * Refills: 0 Cheikh Chao.O.* Started 17-Nov-2011 ActiveProlia 60 MG/ML Subcutaneous Solution INJECT SUBCUTANEOUSLY 60 MG / 1 ML EVERY 6 MONTHS * Refills: 0 Cheikh Chao.O.* Started 17-Nov-2011 ActivePotassium Chloride ER 10 MEQ Oral Capsule Extended Release TAKE ONE CAPSULE BY MOUTH EVERY DAY * Quantity: 90 Refills: 3 Cheikh Chao.O.* Started 15-Feb-2012 ActiveCyclobenzaprine HCl - 10 MG Oral Tablet TAKE 1 TABLET AT BEDTIME. * Quantity: 7 Refills: 0 Cheikh Chao.O.* Started 09-Jan-2015 ActiveAcetaminophen-Codeine #3 300-30 MG Oral Tablet TAKE 1 TABLET EVERY 6 HOURS NEEDED FOR PAIN. * Quantity: 30 Refills: 0 Cheikh Chao.O.* Started 09-Jan-2015 ActiveTraMADol HCl - 50 MG Oral Tablet TAKE 1 TABLET EVERY 6 HOURS NEEDED FOR PAIN. * Quantity: 30 Refills: 0 Cheikh Chao.O.* [...] History of Hand Surgery History of Tonsillectomy EPIDURAL INJECTION Ordered:06-Feb-2015 Immunization Name Dates Details Immunizations not documented [...] smoker Vital Signs Date Test Result Details 06-Feb-2015 10:19 BP Systolic 118 mm[Hg] Status: BP Diastolic 60 mm[Hg] Status: Heart Rate 72 /min Status: Weight 91.25 lb Status: Body Mass Index Calculated 17.82 kg/m2 Status: Body Surface Area Calculated 1.34 m2 Status: 23-Jan-2015 10:48 BP Systolic 110 mm[Hg] Status: [...] m2 Status: Results Date Description Value Details 23-Jan-2015 13:06 XRay SPINE-LUMBAR Comments: Exam Date: 11: 42Dictation Date: 13:06 X SPINE LUMBAR W/ FLEX & EXT (Better) 31-Jan-2015 11:23 MRI LUMBAR SPINE Comments: Exam Date: [id number] 10: 34Dictation Date: [id number] 11:23 XMR SPINE LUMBAR (Better) Plan of Care Planned Observations* Name Dates Details Planned Goals not documented Goal Planned Encounters* Appointment; Provider: Yoel العلي On 23-Jun-2015 10:45 * Appointment; Provider: Cheikh Chao On 04-Mar-2015 10:30 Instructions * Instructions not documented Encounters Appointment; [...]
--- OUTSIDE RECORDS SUMMARY | 2017-02-18 17:29 | XMS REPORT | Summary of Care ---
Author Author Chanel JALLOH, [employer] Organization Unknown Address [address] [place], [place] [id number] Phone Unavailable Care Team Providers Care Braid Folder Name Role Phone Stephanie Bear M.D. Unavailable [...] History of Hand Surgery History of Tonsillectomy LIVER PROFILE 1215 Ordered:04-Feb-2016 Immunization Name Dates Details Immunizations not documented [...]
--- OUTSIDE RECORDS SUMMARY | 2017-02-18 17:29 | XMS REPORT | Summary of Care ---
Author Author Cheikh Chao D.O. Organization Unknown Address [address], [place] [id number] Phone Unavailable Care Team Providers Care Software Publisher Name Role Phone Cheikh Chao D.O. Unavailable Unavailable Galdino العلي M.D. Unavailable Unavailable Cheikh Chao PP Unavailable Unavailable Unavailable Functional Status Functional Status Health Issues* Name Dates Details Functional status health issues are not documented Status: Cognitive Status Health Issues* Name Dates Details Cognitive status health issues are not documented Status: Problems Name Dates Details Joint Pain In The Right Hip Status: Active Insomnia (780.52, G47.00) Status: Active Carpal tunnel syndrome (354.0, G56.00) Status: Active Bursitis of right hip (726.5, M70.71) Status: Active Lumbago (724.2, M54.5) Status: Active Primary localized osteoarthrosis of the hip, right (715.15, M16.11) Status: Active Diarrhea (787.91, R19.7) Status: Active Hyperlipidemia (272.4, E78.5) Status: Active Hypothyroidism (244.9, E03.9) Status: Active Lower back pain (724.2, M54.5) Status: Active Peripheral neuropathy (356.9, G62.9) Status: Active Restless legs syndrome (333.94, G25.81) Status: Active Acute sinusitis (461.9, J01.90) Status: Active Osteoporosis (733.00, M81.0) Status: Active 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, M47.816) Status: Active Acute gastritis (535.00, K29.00) Status: Active Abdominal pain (789.00, R10.9) Status: Active Sensorineural hearing loss (389.10, H90.5) Status: Active Tinnitus (388.30, H93.19) Status: Active Hypokalemia (276.8, E87.6) Status: Active Medications Name Dates Details Carbidopa-Levodopa [...] 30 Refills: 0 Cheikh Chao D.O.* Started 09-Jan-2015 Active Allergies and Adverse Reactions Name Dates [...] Resolved Procedures Procedure Dates Details History of Tonsillectomy History of Dilation And Curettage History of Hand Surgery Procedures not documented Immunization Name Dates Details Immunizations not documented Family History Mother* Name Dates Details Family history of Parkinson Disease Status: Active Father* Name Dates Details Family history of Diabetes Mellitus (V18.0) Status: Active Family history of Prostate Cancer (V16.42) Status: Active Sister* Name Dates Details Family history of Diabetes Mellitus (V18.0) Status: Active Family history of Restless Legs Syndrome Status: Active Brother* Name Dates Details Family history of Diabetes Mellitus (V18.0) Status: Active Social History Name Dates Details Smoking Status* Never smoker Vital Signs Date Test Result Details 09-Jan-2015 13:08 BP Systolic 126 mm[Hg] Status: BP Diastolic 62 mm[Hg] Status: Heart Rate 78 /min Status: Weight 93 lb Status: Body Mass Index Calculated 18.16 kg/m2 Status: Body Surface Area Calculated 1.35 m2 Status: 20-Dec-2014 09:22 BP Systolic 124 mm[Hg] Status: [...]
--- OUTSIDE RECORDS SUMMARY | 2017-02-18 17:30 | XMS REPORT | Summary of Care ---
Author Author Yoel العلي M.D. Organization Unknown Address [address], [place] [id number] Phone Unavailable Care Team Providers Care Retail Pharmacy Manager Name Role Phone Cheikh Chao D.O. Unavailable [...] Sensorineural hearing loss (389.10, H90.5) Status: Active Lower back pain (724.2, M54.5) Status: Active Low back pain (724.2, M54.5) Status: Active Degenerative disc disease, lumbar (722.52, M51.36) Status: Active Restless leg syndrome, controlled (333.94, G25.81) Status: Active Peripheral sensory neuropathy (356.9, G62.9) Status: Active Medications Name [...] DAY * Quantity: 90 Refills: 3 Cheikh ChaoO.* Started 15-Feb-2012 ActiveTraMADol HCl - 50 MG [...] smoker Vital Signs Date Test Result Details 23-Jun-2015 11:12 BP Systolic 120 mm[Hg] Status: BP Diastolic 70 mm[Hg] Status: Heart Rate 64 /min Status: Weight 88.2 lb Status: Body Mass Index Calculated 17.23 kg/m2 Status: Body Surface Area Calculated 1.32 m2 Status: 03-Jun-2015 09:58 BP Systolic 120 mm[Hg] Status: BP Diastolic 58 mm[Hg] Status: Heart Rate 72 /min Status: Weight 88 lb Status: Body Mass Index Calculated 17.19 kg/m2 Status: Body Surface Area Calculated 1.32 m2 Status: Results Date Description Value Details 09-Jun-2015 10:38 THYROID STIM. HORMONE 3602 THYROID STIM. HORMONE 0.045 uIU/mL (Below low threshold) Range: 0.550- 4.780 Comments: PLEASE NOTE: Patients undergoing fuorescein dye angiography within the last 72 hours can produce falsely depressed TSH values with current methodology.No established reference ranges for infants and children <2 years of age----- 10:38 FREE T4 3604 FREE T4 1.37 ng/dL (Better) Range: 0.80-1.67 10:42 Comprehensive Metabolic Panel 1212 SODIUM 141 mmol/L (Better) Range: 133-144 POTASSIUM 3.9 mmol/L (Better) Range: 3.5-5.1 CHLORIDE 102 mmol/L (Better) Range: 98-110 CARBON DIOXIDE 30.6 mmol/L (Better) Range: 23.0-33.0 ANION GAP 8 mmol/L (Better) Range: 6-16 BUN 18 mg/dL (Better) Range: 7-18 CREATININE, SERUM 0.81 mg/dL (Better) Range: 0.55-1.02 Comments: Please note new reference ranges effective 2015.----- BUN:CREATININE RATIO 22 (Better) EST GFR, >60 ml/min (Better) Range: >60 EST GFR, NON-AFR [place]UNG[place]IAN >60 ml/min (Better) Range: >60 Comments: EST GFR is reported in ml/min per 1.73 m2 of body surface area. For -Armenian, please multiple result by 1.2.----- GLUCOSE 99 mg/dL (Better) Range: 70-100 ALK PHOSPHATASE 61 U/L (Better) Range: 46-116 TOTAL BILIRUBIN 0.70 mg/dL (Better) Range: 0.20-1.00 AST 16 U/L (Better) Range: 8-35 ALT 11 U/L (Below low threshold) Range: 14-59 Comments: Please note new reference ranges. Effective 12/19/2014.----- ALBUMIN 3.6 g/dL (Better) Range: 3.4-5.0 TOTAL PROTEIN 6.6 g/dL (Better) Range: 6.4-8.2 A/G RATIO 1.2 units (Better) Range: 1.0-1.8 CALCIUM 9.3 mg/dL (Better) Range: 8.5-10.1 10:42 LIPID PROFILE 1184 CHOLESTEROL 186 mg/dL (Better) Range: <200 TRIGLYCERIDES 88 mg/dL (Better) Range: 30-200 HDL Cholesterol 68 mg/dL (Better) Range: >39 NON HDL CHOLESTEROL 118 (Better) CARDIAC RSK FACTOR 2.7 units (Below low threshold) Range: 4.4-5.0 LDL - CALCULATED 100 mg/dL (Better) Range: 0-130 17-Jun-2015 15:40 MAMMOGRAM-SCREENING Comments: Exam Date: 06/17/2015 11: 13Dictation Date: 06/17/2015 15:40 XM SCREENING (Better) Plan of Care Planned Observations* Name [...]
--- OUTSIDE RECORDS SUMMARY | 2017-02-18 17:30 | XMS REPORT | Summary of Care ---
Author Author Cheikh Chao D.O. Organization Unknown Address [address], [place] [id number] Phone Unavailable Care Team Providers Care Clock Repair Technician Name Role Phone Cheikh Chao D.O. Unavailable [...] 90 Refills: 3 Cheikh Chao.O.* Started 15-Feb-2012 ActivePredniSONE 20 MG Oral Tablet Take 3 Tabs X's 3 DaysTake 2 Tabs X's 3 DaysTake 1 Tabs X's 3 Days * Quantity: 18 Refills: 0 Tracy Chaon D.O.* Started 09-Jan-2015 ActiveCyclobenzaprine HCl - 10 MG [...] FOR PAIN. * Quantity: 30 Refills: 0 Tracy Chaon D.O.* Started 23-Jan-2015 Active Allergies and Adverse [...] 11:23 MRI LUMBAR SPINE Comments: Exam Date: 10: 34Dictation Date: 11:23 XMR SPINE LUMBAR (Better) Plan of [...]
--- OUTSIDE RECORDS SUMMARY | 2017-02-18 17:30 | XMS REPORT | Summary of Care ---
Author Author Cheikh Chao D.O. Organization Unknown Address [address], [place] [phone] Phone Unavailable Care Team Providers Care Surveillance Analyst Name Role Phone Cheikh Chao D.O. Unavailable [...] ML EVERY 6 MONTHS * Refills: 0 Chekih Chao D.O.* Started 17-Nov-2011 ActivePotassium Chloride ER [...] History of Hand Surgery History of Tonsillectomy MRI LUMBAR SPINE Ordered:23-Jan-2015 Immunization Name Dates [...] SPINE LUMBAR W/ FLEX & EXT (Better) Plan of Care Planned Observations* Name [...]
--- OUTSIDE RECORDS SUMMARY | 2017-02-18 17:30 | XMS REPORT | Summary of Care ---
Author Author Cheikh Chao D.O. Organization Unknown Address [address], [place] [phone] Phone Unavailable Care Team Providers Care Accountant Name Role Phone Cheikh Chao D.O. Unavailable [...] FOR PAIN. * Quantity: 30 Refills: 0 Cehikh Chao.O.* Started 23-Jan-2015 Active Allergies and Adverse [...] m2 Status: Results Date Description Value Details 31-Jan-2015 11:23 MRI LUMBAR SPINE Comments: Exam Date: 10: 34Dictation Date: 11:23 XMR SPINE LUMBAR (Better) 21-Feb-2015 10:08 EPIDURAL INJECTION Comments: Exam Date: 02/21/2015 09: 43Dictation Date: 02/21/2015 10:08 XF EPIDURAL INJECTION (Better) Plan of Care Planned Observations* Name [...]
--- OUTSIDE RECORDS SUMMARY | 2017-02-18 17:30 | XMS REPORT | Summary of Care ---
Author Author Yoel العلي M.D. Organization Unknown Address [address], [place] [phone] Phone Unavailable Care Team Providers Care Curb Builder Name Role Phone Cheikh Chao Unavailable Unavailable Unavailable Unavailable Functional Status Functional Status Health Issues* Name Dates Details No known functional status health issues Status: Cognitive Status Health Issues* Name Dates Details No known cognitive status health issues Status: Problems Name Dates Details Joint Pain [...] Sensorineural hearing loss (389.10, H90.5) Status: Active Peripheral neuropathy (356.9, G62.9) Status: Active Restless legs syndrome (333.94, G25.81) Status: Active Medications Name Dates Details Carbidopa-Levodopa 25-250 MG Oral Tablet Take 1 tab at 7 am and 1/2 tab at 1pm and 7 pm, may repeat one at bedtime or during the night as needed. Quantity: 30 Tablet * Started 01-Dec-2009 ActiveLevothyroxine Sodium 100 MCG Oral Tablet take one tablet by mouth every day * Quantity: 90 EA Refills: 3 * Started 01-Dec-2009 ActiveSenokot 8.6 MG Oral Tablet TAKE 2 TABLET Bedtime * Refills: 0 * Started 17-Nov-2011 ActiveProlia 60 MG/ML Subcutaneous Solution INJECT SUBCUTANEOUSLY 60 MG / 1 ML EVERY 6 MONTHS * Refills: 0 * Started 17-Nov-2011 ActivePotassium Chloride ER 10 MEQ Oral Capsule Extended Release TAKE ONE CAPSULE BY MOUTH EVERY DAY * Quantity: 90 Capsule Extended Release Refills: 3 * Started 15-Feb-2012 ActiveALPRAZolam 1 MG Oral Tablet TAKE HALF TO A FULL TABLET AT BEDTIME NEEDED * Quantity: 30 Tablet Refills: 3 * Started 07-Dec-2013 ActiveLORazepam 0.5 MG Oral Tablet TAKE 1 PILL 1 HOUR BEFORE BEDTIME * Quantity: 10 Tablet Refills: 0 * Started 21-Dec-2013 Active Allergies and Adverse Reactions Name Dates Details No Known Drug Allergies Status: Active Past Medical History Name Dates Details History of low back pain (V13.59, Z87.39) Status: Resolved Temporomandibular joint pain (524.62, M26.62) Status: Resolved Neck stiffness (723.5, M43.6) Status: Resolved Pain in hand (729.5, M79.643) Status: Resolved History of abnormal weight loss (V13.89, Z87.898) Status: Resolved Numbness (782.0, R20.0) Status: Resolved Visual impairment (369.9, H54.7) Status: Resolved History of thyroid disease (V12.29, Z86.39) Status: Resolved History of constipation (V12.79, Z87.19) Status: Resolved Procedures Procedure Dates Details Dilation And Curettage Hand Surgery Tonsillectomy Procedures not documented Immunization Name Dates Details Immunizations not documented Family History Mother* Name Dates Details Parkinson Disease Status: Active Father* Name Dates Details Prostate Cancer (V16.42) Status: Active Diabetes Mellitus (V18.0) Status: Active Sister* Name Dates Details Diabetes Mellitus (V18.0) Status: Active Restless Legs Syndrome Status: Active Brother* Name Dates Details Diabetes Mellitus (V18.0) Status: Active Social History Name Dates Details Never smoker (V49.89, Z78.9) Smoking Status* Never smoker Vital Signs Date Test Result Details 21-Jun-2014 08:58 BP Systolic 126 mm[Hg] Status: BP Diastolic 72 mm[Hg] Status: Heart Rate 80 /min Status: Weight 91.2 lb Status: Body Mass Index Calculated 17.81 kg/m2 Status: Body Surface Area Calculated 1.34 Status: Results Date Description Value Details Results not documented Plan of Care Instructions* Instructions not documented Planned Observations* Name Dates Details Planned Goals not documented Goal Planned Encounters* Appointment; Provider: Yoel العلي On 20-Dec-2014 09:30 Instructions * No Known Instructions Encounters Appointment; Yoel العلي Encounter Diagnosis: Problem [...] documented On 23-Nov-2013 09:00 Appointment; Cheikh Chao Diagnosis: Problem not documented On 08-Oct-2013 10:45 Appointment; Cheikh Chao Encounter Diagnosis: Problem not documented On 06-Aug-2013 11:00 Appointment; Yoel العلي Encounter Diagnosis: Problem not documented On 23-May-2013 08:45 Appointment; Yoel العلي Encounter Diagnosis: Problem not documented On 11:45 Appointment; Yoel اللعي Encounter Diagnosis: Problem not documented On 27-Feb-2013 16:00 Appointment; Pily Barnes Encounter Diagnosis: Problem not documented On 16-Aug-2012 10:30 Appointment; Yoel العلي Encounter Diagnosis: Problem not documented On 24-Jul-2012 11:45
--- OUTSIDE RECORDS SUMMARY | 2017-02-18 17:30 | XMS REPORT | Summary of Care ---
Author Author Cheikh Chao D.O. Organization Unknown Address [address] [place], [place] [phone] Phone Unavailable Care Team Providers Care Best Worker Name Role Phone Cheikh Chao D.O. Unavailable [...] Active Peripheral neuropathy (356.9, G62.9) Status: Active Degenerative disc disease, lumbar (722.52, M51.36) Status: Active Lower back pain (724.2, M54.5) Status: Active Low back pain (724.2, M54.5) Status: Active Medications [...] smoker Vital Signs Date Test Result Details 04-Mar-2015 10:26 BP Systolic 106 mm[Hg] Status: BP Diastolic 62 mm[Hg] Status: Heart Rate 84 /min Status: Weight 88.125 lb Status: Body Mass Index Calculated 17.21 kg/m2 Status: Body Surface Area Calculated 1.32 m2 Status: 06-Feb-2015 10:19 BP Systolic 118 mm[Hg] Status: BP Diastolic 60 mm[Hg] Status: Heart Rate 72 /min Status: Weight 91.25 lb Status: Body Mass Index Calculated 17.82 kg/m2 Status: Body Surface Area Calculated 1.34 m2 Status: Results Date Description Value Details 21-Feb-2015 10:08 EPIDURAL INJECTION Comments: Exam Date: 02/21/2015 09: 43Dictation Date: 02/21/2015 10:08 XF EPIDURAL INJECTION (Better) Plan of Care Planned Observations* Name Dates Details Planned Goals not documented Goal Planned Encounters* Appointment; Provider: Yoel العلي On 23-Jun-2015 10:45 * Appointment; Provider: Cheikh Chao On 03-Jun-2015 09:30 Instructions * Instructions not documented Encounters Appointment; Chekih Chao Encounter Diagnosis: Problem not documented On [...]
--- OUTSIDE RECORDS SUMMARY | 2017-02-18 17:30 | XMS REPORT | Summary of Care ---
Author Author Cheikh Chao D.O. Organization Unknown Address [address], [place] [phone] Phone Unavailable Care Team Providers Care Harbor Police Launch Commander Name Role Phone Cheikh Chao D.O. Unavailable [...] 90 Refills: 3 Cheikh Chao.Kelley.* Started 15-Feb-2012 ActiveCyclobenzaprine HCl - 10 MG [...] ml/min (Better) Range: >60 EST GFR, NON-AFR MALDIVIAN >60 ml/min (Better) Range: >60 Comments: EST GFR is reported in ml/min per 1.73 m2 of body surface area. For -Azerbaijani, please multiple result by 1.2.----- GLUCOSE 99 [...] العلي On 23-Jun-2015 10:45 * Appointment; Provider: Schedule Radiology On 17-Jun-2015 [...]
--- OUTSIDE RECORDS SUMMARY | 2017-02-18 17:31 | XMS REPORT | Summary of Care ---
Author Author Yoel العلي M.D. Unknown Address Unknown Phone Unavailable Care Team Providers Care Technical Sales Representative Name Role Phone Chema Montoya, Stephanie Unavailable Unavailable Mirza Montoya, Isabel Unavailable Unavailable Jeremie Hernández, Cheikh Unavailable Unavailable Chanel JALLOH, Saba Unavailable Unavailable Zohra Montoya, Galdino Unavailable Unavailable Renetta Lima Unavailable Unavailable Unavailable Unavailable Functional Status Name [...] Callus of foot (700, L84) Status: Active Difficulty in walking (719.7, R26.2) Status: Active Iron deficiency anemia (280.9, D50.9) [...] Active Nasal congestion (478.19, R09.81) Status: Active Restless leg syndrome, controlled (333.94, G25.81) Status: Active 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 Quantity: 180 Yoel العلي M.D. Start 01-Dec-2009 Active Levothyroxine [...] Quantity: 1 Refills: 1 Jose Bear M.D. Start 15-Feb-2012 Active 90 Capsule Extended Release [...] 50-200 MG Oral Tablet Extended Release TAKE ONE TABLET BY MOUTH ONCE DAILY AT BEDTIME * Quantity: 30 Refills: 5 Zohra Montoya, Yoel Ahmadi * Start 27-Dec-2016 Active PredniSONE 10 MG Oral Tablet TAKE [...] smoker Vital Signs Date Test Result Details 05-Jan-2017 10:45 BP Systolic 100 mm[Hg] Status: Comments: Location: ; Position: BP Diastolic 66 mm[Hg] Status: Comments: Location: ; Position: Heart Rate 80 /min Status: Comments: Location: ; Weight 90 lb Status: Physical Findings 96 Status: Comments: O2 Saturation Body Mass Index Calculated 17.58 kg/m2 Status: Body Surface Area Calculated 1.33 m2 Status: Results Date Description Value Details Results not documented Plan of Care Name Dates Details Planned Observations Planned Goals not documented Planned Encounters Appointment; Provider: Yoel العلي M.D. On 08-Jul-2017 11:30 Instructions Name Dates Details Instructions not documented Encounters Appointment; Neel Coleman M.D. Encounter Diagnosis: Problem not documented On 21-Oct-2016 11:00 Appointment; Kristian Blue M.D. Encounter Diagnosis: Problem [...]
--- OUTSIDE RECORDS SUMMARY | 2017-02-18 17:31 | XMS REPORT | Summary of Care ---
Author Author Cheikh Chao D.O. Organization Unknown Address [address], [place] [phone] Phone Unavailable Care Team Providers Care Smoke Room Operator Name Role Phone Cheikh Chao D.O. Unavailable [...]
--- OUTSIDE RECORDS SUMMARY | 2017-02-18 17:31 | XMS REPORT | Summary of Care ---
Author Author Kristian Blue M.D. Unknown Address Unknown Phone Unavailable Care Team Providers Care Assembler Installer Structures Name Role Phone Stephanie Bear M.D. Unavailable Unavailable Mirza Montoya, Isabel Unavailable Unavailable Cheikh Chao D.O. Unavailable Unavailable Saba Buchanan DPM Unavailable Unavailable Zohra Montoya, Galdino Unavailable Unavailable [...] Eustachian tube dysfunction (381.81, H69.80) Status: Active Medications Name Dates Details Carbidopa-Levodopa [...] TABLET Bedtime * Quantity: 30 Refills: 5 Zohra Montoya, Yoel Ahmadi * Start 23-Jun-2016 Active Amoxicillin 500 MG Oral Capsule TAKE 1 CAPSULE 3 TIMES DAILY UNTIL GONE. * Quantity: 30 Refills: 0 Mirza Montoya, Kristian Hall * Start 12-Oct-2016 End 22-Oct-2016 Active PredniSONE 10 MG Oral Tablet TAKE 4 TABLETS DAILY FOR 2 DAYS,3 TABLETS DAILY FOR 2 DAYS, 2 TABLETS DAILY FOR 2 DAYS AND 1 TABLET DAILY FOR 2 DAYS, THEN STOP. * Quantity: 20 Refills: 0 Daphneyode Jna, Kristian Hall * Start 12-Oct-2016 Active Allergies and Adverse [...] smoker Vital Signs Date Test Result Details 12-Oct-2016 15:57 BP Systolic 110 mm[Hg] Status: Comments: Location: ; Position: BP Diastolic 68 mm[Hg] Status: Comments: Location: ; Position: Temperature 97.9 f Status: Comments: Method: Heart Rate 77 /min Status: Comments: Location: ; Physical Findings 97 Status: Comments: O2 Saturation Results Date Description Value Details Results not documented Plan of Care Name Dates Details Planned Observations Planned Goals not documented Planned Encounters Appointment; Provider: Yoel العلي M.D. On 05-Jan-2017 10:45 Interventions Provided Medication Changes* Amoxicillin 500 MG Oral Capsule - Start * PredniSONE 10 MG Oral Tablet - Start Instructions Name Dates Details Instructions not documented Encounters Appointment; Yoel العلي M.D. Encounter Diagnosis: Problem [...]
--- OUTSIDE RECORDS SUMMARY | 2017-02-18 17:31 | XMS REPORT | Summary of Care ---
Author Author Saba Buchanan DPM Organization Unknown Address [address] [place], [place] [phone] Phone Unavailable Care Team Providers Care Terra Cotta Setter Name Role Phone Stephanie Bear M.D. Unavailable [...] Refills: 0 Yoel العلي M.D.* Started 22-Dec-2015 ActiveCefadroxil 500 MG Oral Capsule TAKE 1 CAPSULE TWICE DAILY. * Quantity: 28 Refills: 0 Saba Buchanan DPM* Started 10-Feb-2016 Active Allergies and Adverse Reactions Name Dates [...] Buchanan Encounter Diagnosis: Problem not documented On 20-Feb-2016 14:30 Appointment; Saba Buchanan Encounter Diagnosis: Problem not [...]
--- OUTSIDE RECORDS SUMMARY | 2017-02-18 17:31 | XMS REPORT | Summary of Care ---
Author Author Cheikh Chao D.O. Organization Unknown Address [address], [place] [phone] Phone Unavailable Care Team Providers Care Promotions Representative Name Role Phone Cheikh Chao D.O. Unavailable [...] History of Hand Surgery History of Tonsillectomy MAMMOGRAM-SCREENING Ordered:03-Jun-2015 Immunization Name Dates Details Immunizations [...] ml/min (Better) Range: >60 EST GFR, NON-AFR [place] >60 ml/min (Better) Range: >60 Comments: EST GFR is reported in ml/min per 1.73 m2 of body surface area. For -Romanian, please multiple result by 1.2.----- GLUCOSE 99 [...] - CALCULATED 100 mg/dL (Better) Range: 0-130 Plan of Care Planned Observations* Name Dates [...]
--- OUTSIDE RECORDS SUMMARY | 2017-02-18 17:31 | XMS REPORT | Summary of Care ---
Author Author Parvez Booth M.D. [facility] Unknown Address [address], [place] [phone] Phone Unavailable Care Team Providers Care Margin Clerk Name Role Phone Cheikh Chao D.O. Unavailable Unavailable Galdino العلي M.D. Unavailable Unavailable Cheikh Choa PP Unavailable Unavailable Unavailable Functional Status Functional [...] Refills: 0 Cheikh Chao D.O.* Started 09-Jan-2015 ActiveTraMADol HCl - 50 MG [...]
--- OUTSIDE RECORDS SUMMARY | 2017-02-18 17:31 | XMS REPORT | Summary of Care ---
Author Author Yoel العلي M.D. Unknown Address Unknown Phone Unavailable Care Team Providers Care Clipper Machine Name Role Phone Stephanie Bear M.D. Unavailable [...] Iron deficiency anemia (280.9, D50.9) Status: Active Medications Name Dates Details Carbidopa-Levodopa [...] Refills: 0 Jose Bear M.D. Start Active Terbinafine HCl - 250 MG Oral [...] * Refills: 0 * Start 23-Jun-2016 Active Allergies and Adverse Reactions Name Dates [...] smoker Vital Signs Date Test Result Details 23-Jun-2016 11:46 BP Systolic 102 mm[Hg] Status: Comments: Location: ; Position: BP Diastolic 50 mm[Hg] Status: Comments: Location: ; Position: Heart Rate 66 /min Status: Comments: Location: ; Weight 87 lb Status: Physical Findings 100 Status: Comments: O2 Saturation Body Mass Index Calculated 16.99 kg/m2 Status: Body Surface Area Calculated 1.31 m2 Status: Results Date Description Value Details Results not documented Plan of Care Name Dates Details Planned Observations Planned Goals not documented Instructions Name Dates Details Instructions not documented [...]
--- NOTE | 2017-02-18 17:35 | NUR ---
ADMIT PATIENT ARRIVES HERE AT THIS TIME. PATIENT AMBULATES TO THE NURSES' STATION WITH DAUGHTER. PATIENT IS DIRECTED TO HER ROOM 146. PATIENT SETTLES IN ROOM. TEMPERATURE IN ROOM ADJUSTED TO PATIENT'S COMFORT.
[2017-02-18 17:53] VITALS: BP 118/58; PULSE 91; RESP 12; TEMP 96.4; O2SAT 99
[2017-02-18 17:54] VITALS: Ht 154.9 cm; Wt 41.2 kg
[2017-02-18] MEDS ORDERED: CYAN10009 PO (18:51)
[2017-02-18] MEDS ORDERED: ASPI-557 PO (18:51)
[2017-02-18] MEDS ORDERED: SENN8.6T94 PO (18:51)
[2017-02-18] MEDS ORDERED: POTA10CA37 PO (18:51)
[2017-02-18] MEDS ORDERED: LEVO88TA7 PO (18:51)
[2017-02-18] MEDS ORDERED: CA C-5 (18:51)
[2017-02-18] MEDS ORDERED: ASCO60LO11 (18:51)
[2017-02-18] MEDS ORDERED: AZIT250T PO (18:51)
--- NOTE | 2017-02-18 18:56 | NUR ---
DR. KELLER AT BEDSIDE
[2017-02-18] MEDS ORDERED: [UNRECOGNIZED DRUG - CODE] PO (19:04)
[2017-02-18] MEDS ORDERED: CARB1TAB42 PO (19:27)
[2017-02-18] MEDS ORDERED: CYAN1TAB14 (19:27)
[2017-02-18] MEDS ORDERED: GABA-336 PO (19:27)
[2017-02-18] MEDS: NORMAL SALINE 500 ML IV SCH (20:24)
[2017-02-18] MEDS ORDERED: LEVODOPA PO SCH ×2 (20:30→22:00)
[2017-02-18] MEDS ORDERED: CARBIDOPA PO SCH ×2 (20:30→22:00)
[2017-02-18 20:54] VITALS: PULSE 93
[2017-02-18 21:05] VITALS: BP 107/60; PULSE 94; RESP 16; TEMP 97.6; O2SAT 100
[2017-02-18] MEDS: GABAPENTIN 100 MG PO SCH (21:51)
--- NOTE | 2017-02-18 22:30 | NUR ---
Status Pt had sudden bout of nausea approx 1.5 hours into first unit of packed cells. Paused blood and checked vital signs. Vital signs stable. Administered PRN Zofran. Notified Dr. Pickett who ordered to continue blood transfusion with no new orders. Pt stated that nausea decreased with Zofran administration. Will continue to monitor.
[2017-02-19 00:25] VITALS: BP 106/61; PULSE 77; RESP 14; TEMP 97.1; O2SAT 100
[2017-02-19] MEDS: NORMAL SALINE 500 ML IV SCH (00:57)
--- NOTE | 2017-02-19 04:00 | NUR ---
Blood Transfusion Complete Gave two units of packed cells. Pt denied any S/S's of transfusion reaction throughout and 30 minutes post-transfusion. Vital signs remained stable. No new concerns. Will continue to monitor.
[2017-02-19 04:09] VITALS: BP 112/61; PULSE 74; RESP 14; TEMP 97.9; O2SAT 100
--- NOTE | 2017-02-19 04:20 | NUR ---
Chart Check 24 hour chart check completed
[2017-02-19 04:43] LABS: BASOPHILS # (AUTO) 0.1 T/MM3 (0-0.2); BASOPHILS % (AUTO) 0.7 % (0-2); EOSINOPHILS # (AUTO) 0.2 T/MM3 (0-0.5); EOSINOPHILS % (AUTO) 2.5 % (0-4); IMMATURE GRANULOCYTE # (AUTO) 0.06 T/MM3 (0.00-0.03); IMMATURE GRANULOCYTE % (AUTO) 0.7 % (0.0-0.5); LYMPHOCYTES # (AUTO) 1.3 T/MM3 (1-4.8); LYMPHOCYTES % (AUTO) 14.8 % (23-45); MEAN CORPUSCULAR HGB 28.8 UUG (26-34); MEAN CORPUSCULAR HGB CONC(MCHC 32.1 GM/DL (31-37); MEAN CORPUSCULAR VOLUME 89.7 UM3 (80-100); MEAN PLATELET VOLUME 8.5 UM3 (9.4-12.4); MONOCYTES # (AUTO) 0.7 T/MM3 (0-0.8); MONOCYTES % (AUTO) 8.2 % (0-9.0); NEUTROPHILS #(AUTO)-ABSOLUTE 6.5 T/MM3 (1.8-7.7); NEUTROPHILS % (AUTO) 73.1 % (33-66); RED BLOOD COUNT 3.12 M/MM3 (4.00-5.20); WBC - WHITE BLOOD COUNT 8.9 T/MM3 (4.5-11.0)
[2017-02-19 04:55] LABS: ANION GAP 11 MEQ/L (5-15); BUN/CREATININE RATIO 27 RATIO (6-26); CALCIUM 8.3 MG/DL (8.4-10.2); CHLORIDE 104 MEQ/L (98-107); CO2 - CARBON DIOXIDE 27 MEQ/L (22-30); CREATININE 0.7 MG/DL (0.7-1.2); GLOMERULAR FILTRATION RATE 81; GLUCOSE 106 MG/DL (65-110); POTASSIUM 3.7 MEQ/L (3.6-5); SODIUM 142 MEQ/L (134-144)
--- NOTE | 2017-02-19 05:53 | NUR ---
Status Pt denies S/S of transfusion reaction. States she "feels fine!" Notified patient of Hgb of 9.0. Pt states she has a BM approximately q3days if she is taking stool softeners. Had a BM two days ago. Pt steady on feet with ambulation. A/Ox3. VSS throughout shift. Compliant with cares. Uses call light appropriately. Will continue to monitor.
[2017-02-19] MEDS ORDERED: OMEPRAZOLE 20 MG CAPSULE PO SCH (06:30)
[2017-02-19] MEDS ORDERED: --POM--LEVOTHYROXINE 88 MCG TABLET PO SCH (06:30)
[2017-02-19 08:00] VITALS: BP 115/65; PULSE 76; PULSE 78; RESP 18; TEMP 97.8; O2SAT 96
[2017-02-19] MEDS ORDERED: POTASSIUM CL. 10mEq CAP PO SCH (08:00)
--- NOTE | 2017-02-19 08:11 | NUR ---
JESSEE WEBBER IS 2. Addendum: 02/19/17 at 0811 by CINDY TORRES SW Amended: Links added.
[2017-02-19] MEDS: GABAPENTIN 100 MG PO SCH (08:58)
[2017-02-19] MEDS ORDERED: AZITHROMYCIN 250 MG PO SCH (09:00)
[2017-02-19] MEDS ORDERED: CYANOCOBALAMIN (B-12) 500mcg TABLET PO SCH (09:00)
[2017-02-19] MEDS ORDERED: SENNOSIDES 8.6 MG TABLET PO SCH (09:00)
[2017-02-19] MEDS ORDERED: IOHEXOL 300 MG/ML 75ml INJECTION ONE (09:17)
[2017-02-19] MEDS ORDERED: NORMAL SALINE 100 ML ONE (09:17)
[2017-02-19] MEDS ORDERED: SALINE FLUSH 10ml SYRINGE ONE (09:17)
--- NOTE | 2017-02-19 10:40 | NUR ---
CM SPOKE WITH PT, INTRODUCED SELF, EXPLAINED ROLE, PROVIDED CONTACT INFO. PT STATED SHE LIVES ALONE IN [place], AND SHE WILL RETURN HOME WHEN SHE IS DC'D. SHE SAID HER FAMILY WILL PICK HER UP. SHE SAID HER CHILDREN LIVE CLOSE BY TO HER AND ARE VERY SUPPORTIVE, SO SHE HAD NO NEEDS (IE HOME HEALTH), SHE SAID. SHE DOES NOT USE ANY DME. 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 Addendum: 02/19/17 at 1041 by CINDY LINDO Amended: Links added.
[2017-02-19] MEDS ORDERED: POLY17PO6 PO (10:51)
[2017-02-19] MEDS ORDERED: MAGN400O4 PO (10:51)
[2017-02-19] MEDS ORDERED: DOCU-168 PO (10:51)
[2017-02-19] MEDS ORDERED: OMEP20CA10 PO (10:51)
[2017-02-19] MEDS ORDERED: SENN8.6T94 PO (10:51)
--- NOTE | 2017-02-19 11:02 | DSPDOC ---
SHELL JOSEPH DIE HOLDER 02/19/17 1044: General Date Date DATE: 02/19/17 TIME: 10:34 Attending Physician Malaika Cote MD Admitting Physician Malaika Cote MD Consulting Physician Ayla Kemp MD Admitting Diagnosis Anemia Discharge Diagnosis Iron deficiency anemia Laboratory Laboratory Tests Test 02/19/17 04:27 02/19/17 04:28 White Blood Count 8.9T/MM3 (4.5-11.0) Red Blood Count 3.12M/MM3 (4.00-5.20) Hemoglobin 9.0GM/DL (12-16) Hematocrit 28.0% (36-46) Mean Corpuscular Volume 89.7UM3 (80-100) Mean Corpuscular Hemoglobin 28.8UUG (26-34) Mean Corpuscular Hemoglobin Concent 32.1GM/DL (31-37) RDW Standard Deviation 43.6FL (36.9-50.2) Platelet Count 449T/MM3 (130-400) Mean Platelet Volume 8.5UM3 (9.4-12.4) Immature Granulocyte % (Auto) 0.7% (0.0-0.5) Neutrophils (%) (Auto) 73.1% (33-66) Lymphocytes (%) (Auto) 14.8% (23-45) Monocytes (%) (Auto) 8.2% (0-9.0) Eosinophils (%) (Auto) 2.5% (0-4) Basophils (%) (Auto) 0.7% (0-2) Absolute Immature Granulocyte (auto 0.06T/MM3 (0.00-0.03) Absolute Neutrophils (auto) 6.5T/MM3 (1.8-7.7) Absolute Lymphocytes (auto) 1.3T/MM3 (1-4.8) Absolute Monocytes (auto) 0.7T/MM3 (0-0.8) Absolute Eosinophils (auto) 0.2T/MM3 (0-0.5) Absolute Basophils (auto) 0.1T/MM3 (0-0.2) Turbidity < 20 (0-20) Sodium Level 142MEQ/L (134-144) Potassium Level 3.7MEQ/L (3.6-5) Chloride Level 104MEQ/L (98-107) Carbon Dioxide Level 27MEQ/L (22-30) Anion Gap 11MEQ/L (5-15) Blood Urea Nitrogen 19.0MG/DL (7-17) Creatinine 0.7MG/DL (0.7-1.2) Glomerular Filtration Rate Calc 81 BUN/Creatinine Ratio 27RATIO (6-26) Glucose Level 106MG/DL (65-110) Calculated Osmolality 275MOSM/KG (261-280) Calcium Level 8.3MG/DL (8.4-10.2) Icterus Index < 2 (0-7) Chemistry Specimen Hemolysis < 15 (0-25) Radiology Preliminary report of CT abdomen and pelvis with IV contrast indicated large amount of colonic stool. No acute findings. History of Present Illness Gisela Plaza complains of having no energy for 3-4 months but denies any recognition of blood loss including black stools, hematochezia, hematuria, or hemoptysis. She reports occasional heartburn but indicates this is infrequent. Her appetite is okay although she's lost about 15-20 pounds over the past year which family members indicate they've attributed to of her about a year ago. The patient describes feeling dizzy when she stands or bends and was mildly orthostatic and Dr. Alba's office today supine blood pressure 97/ 48 and upright blood pressure 88/53 with corresponding 8 point increase in pulse. The patient had a hemoglobin of 7.8 on 02/14/17 at which time iron level was 15 with iron saturation of 4% and ferritin was 26. Hemoglobin and Dr. Alba 's office today had dropped to 6.[address] Alba reports past bone marrow biopsy demonstrated absent iron stores. Hospital Course Gisela was admitted to observation status for symptomatic anemia. She was transfused 2 units of blood and her hgb improved to 9.0. PPI was initiated as a precaution. Dr. Kemp, was consulted and recommended outpatient evaluation with EGD and/or colonoscopy. A CT scan of her abdomen and pelvis was obtained to rule out intra-abdominal pathology. Note preliminary report was positive for constipation, and she should follow-up with Dr. Alba for the radiologic overread. By morning, but he was feeling better. She denied any abdominal pain or nausea, and ate a good breakfast. She denied feeling dizzy, and has been ambulatory. On exam, her lungs were clear, heart was regular and abdomen was soft and nontender with hypoactive bowel sounds. She notes that she has an appointment scheduled with Dr. Alba on Tuesday for an iron infusion. She should plan on calling Dr. Kemp's office to arrange a follow-up appointment as well. Will DC with Rx omeprazole; she should also start daily MiraLAX and increase Sennosides to BID. She was dismissed home in stable condition. This is a general summation of the patient's hospital course. For more details, please refer to the complete medical record. Problems: (1) Iron deficiency anemia Status: Acute (2) Restless leg syndrome (3) DDD (degenerative disc disease) (4) Hypothyroidism (5) Back pain (6) DJD (degenerative joint disease) Code Status Full Code Home Meds Active Scripts Docusate Sodium (Colace) 100 Mg Capsule, 100 MG PO BID Y for CONSTIPATION, #30 CAP 0 Refills Prov:SHELL JOSEPH APRN 02/19/17 Polyethylene Glycol 3350 (Miralax) 17 Gm Powd.pack, 17 G PO DAILY for 14 Days, BOTTLE Take 17 Grams (1 capful), by mouth, once a day. Prov:SHELL JOSEPH APRN 02/19/17 Omeprazole (Omeprazole) 20 Mg Capsule.dr, 20 MG PO ACB for 30 Days, #30 CAP Take 1 capsule, by mouth, one time a day (before breakfast). Prov:SHELL JOSEPH APRN 02/19/17 Magnesium Hydroxide (Milk of Magnesia) 400 Mg/5 Ml Oral.susp, 30 ML PO DAILY Y for CONSTIPATION, #7 Prov:SHELL JOSEPH APRN 02/19/17 Sennosides (Senokot) 8.6 Mg Tablet, 8.6 MG PO BID for 30 Days, #60 TAB Prov:SHELL JOSEPH APRN 02/19/17 Reported Medications Cyanocobalamin/FA/Pyridoxine (Folbee Tablet) 1 Tab Tablet, DAILY 02/18/17 Gabapentin (Gabapentin) 100 Mg Capsule, 1 CAP PO TID, CAP 02/18/17 Carbidopa/Levodopa (Carbidopa-Levo ER 50-200 Tab) 1 Each Tablet.er, 1 TAB PO HS , TAB 02/18/17 Carbidopa/Levodopa (Carbidopa-Levo 25-250 mg Odt) 1 Each Tab.rapdis, 0.5 TAB PO Q4HPRN, TAB 02/18/17 Azithromycin (Zithromax) 250 Mg Tablet, 1 TAB PO DAILY, TAB TAKE TWO ON DAY ONE, THEN ONE TAB DAILY UNTIL ALL TAKEN. 02/18/17 Ca Carb/D3/Mag Ox/Instructor Private/Will/Zn (Caltrate+D3 Plus Mineral Minis) 1 Each Tablet, DAILY 02/18/17 Ascorbic Acid (Vitamin C) 60 Mg Lozenge, DAILY 02/18/17 Cyanocobalamin (Vitamin B-12) (Vitamin B-12) 1,000 Mcg Tablet, 1 TAB PO DAILY, # 30 TAB 2 Refills 02/18/17 Levothyroxine Sodium (Levothyroxine Sodium) 88 Mcg Tablet, 88 MCG PO ACB, TAB Once daily before breakfast. 02/18/17 Potassium Chloride (Potassium Chloride) 10 Meq Capsule.er, 10 MEQ PO WB, CAP Take 1 capsule, by mouth, daily with breakfast 02/18/17 Discontinued Reported Medications Aspirin (Aspir 81) 81 Mg Tablet.dr, 1 TAB PO DAILY, #30 TAB 5 Refills 02/18/17 Face to Face Encounter I met with patient on the day of dismissal and discussed follow up appointments , medications, and safety plan. Discharge Disposition Discharge home, stable Copies To 1: MAGALIS ALBA Copies To 2: AYLA KEMP MD Documentation Requirements Documenting Diagnosis Anemia Anemia Anemia Etiology: Iron Deficiency Anemia Acuity: Chronic MALAIKA COTE MD 02/19/17 1429: Hospital Course I have independently evaluated and examined this patient. I reviewed the chart, the patient's history, and the DIE HOLDER's documented findings as above. We discussed and formulated the assessment and plan as above with additions as below: Mrs. Plaza reports that she slept well overnight but is having increased restlessness in her legs again this morning. I reminded her that iron deficiency will aggravate restless legs but she doesn't recall any improvement last fall after getting iron injections. She plans follow-up with her neurologist regarding alternate medications in the near future. She reports chronic constipation. CT of the abdomen and pelvis was reviewed with the patient with the only finding of concern that of constipation. No evidence of retroperitoneal or other intra-abdominal bleed or mass. Abdomen is benign and breath sounds are clear. Stable for discharge with plans to follow up with Dr. Alba on Tuesday. Given Dr. Kemp's contact information for follow-up EGD. Advised to discontinue aspirin temporarily pending further evaluation. Problems: Home Meds Active Scripts Docusate Sodium (Colace) 100 Mg Capsule, 100 MG PO BID Y for CONSTIPATION, #30 CAP 0 Refills Prov:SHELL JOSEPH APRN 02/19/17 Polyethylene Glycol 3350 (Miralax) 17 Gm Powd.pack, 17 G PO DAILY for 14 Days, BOTTLE Take 17 Grams (1 capful), by mouth, once a day. Prov:SHELL JOSEPH APRN 02/19/17 Omeprazole (Omeprazole) 20 Mg Capsule.dr, 20 MG PO ACB for 30 Days, #30 CAP Take 1 capsule, by mouth, one time a day (before breakfast). Prov:SHELL JOSEPH DIE HOLDER 02/19/17 Magnesium Hydroxide (Milk of Magnesia) 400 Mg/5 Ml Oral.susp, 30 ML PO DAILY Y for CONSTIPATION, #7 Prov:SHELL JOSEPH APRN 02/19/17 Sennosides (Senokot) 8.6 Mg Tablet, 8.6 MG PO BID for 30 Days, #60 TAB Prov:SHELL JOSEPH DIE HOLDER 02/19/17 Reported Medications Cyanocobalamin/FA/Pyridoxine (Folbee Tablet) 1 Tab Tablet, DAILY 02/18/17 Gabapentin (Gabapentin) 100 Mg Capsule, 1 CAP PO TID, CAP 02/18/17 Carbidopa/Levodopa (Carbidopa-Levo ER 50-200 Tab) 1 Each Tablet.er, 1 TAB PO HS , TAB 02/18/17 Carbidopa/Levodopa (Carbidopa-Levo 25-250 mg Odt) 1 Each Tab.rapdis, 0.5 TAB PO Q4HPRN, TAB 02/18/17 Azithromycin (Zithromax) 250 Mg Tablet, 1 TAB PO DAILY, TAB TAKE TWO ON DAY ONE, THEN ONE TAB DAILY UNTIL ALL TAKEN. 02/18/17 Ca Carb/D3/Mag Ox/Instructor Private/Will/Zn (Caltrate+D3 Plus Mineral Minis) 1 Each Tablet, DAILY 02/18/17 Ascorbic Acid (Vitamin C) 60 Mg Lozenge, DAILY 02/18/17 Cyanocobalamin (Vitamin B-12) (Vitamin B-12) 1,000 Mcg Tablet, 1 TAB PO DAILY, # 30 TAB 2 Refills 02/18/17 Levothyroxine Sodium (Levothyroxine Sodium) 88 Mcg Tablet, 88 MCG PO ACB, TAB Once daily before breakfast. 02/18/17 Potassium Chloride (Potassium Chloride) 10 Meq Capsule.er, 10 MEQ PO WB, CAP Take 1 capsule, by mouth, daily with breakfast 02/18/17 Discontinued Reported Medications Aspirin (Aspir 81) 81 Mg Tablet.dr, 1 TAB PO DAILY, #30 TAB 5 Refills 02/18/17 Copies To 1: MAGALIS ALBA Copies To 2: AYLA KEMP MD, KAREN D APRN February 19, 2017 10:44 MALAIKA COTE MD February 19, 2017 14:29
--- NOTE | 2017-02-19 11:20 | NUR ---
SHIFT SUMMARY PATIENT ALERT ND ORIENTED X 3, DENIES PAIN. AMBULATES WELL WITHOUT ASSISTANCE. STEADY GAIT. PATIENT TOOK MEDS WITHOUT PROBLEM. HGB LAB IMPROVED TODAY-9.0. PATIENT WENT FOR CT ABD IN AM, ZAKI PROCEDURE. NO BM TODAY. SR ON TELEMETRY.
--- NOTE | 2017-02-19 11:30 | NUR ---
DISCHARGE NOTE PATIENT STABLE, A0X3, D/C INSTRUCTIONS, PRESCRIPTION FOR PRILOSEC, IRON DEFICIENCY ANEMIA HANDOUT, CONSTIPATION HANDOUT, PATIENT HEALTH SUMMARY, D/C MEDICATION HANDOUT, AND NEW MEDICATION INFORMATION GIVEN. D/W PATIENT TO STOP ASPIRIN AND START ADDITIONAL MEDICATIONS FOR BOWEL MOVEMENT PER D/C ORDERS AND MED LIST. F/U APPTS D/W PATIENT. ASSEMBLY HAND REMOVED, IVSL CHARLIE D/C'ED , PRESSURE APPLIED, NO S/S OF BLEEDING. ARMBANDS REMOVED. PATIENT HAS ALL BELONGINGS AND ALL HOME MEDICATIONS WITH HER. PATIENT TRANSPORTED OFF MEDICAL UNIT IN WHEELCHAIR WITH RN AND DAUGHTER OUT OF FRONT ENTRANCE. PATIENT TRANSFERRED FROM WHEELCHAIR TO DAUGHTERS PRIVATE VEHICLE PER SELF WITHOUT ASSISTANCE. TO BE DRIVEN HOME BY DAUGHTER IN DAUGHTER'S PRIVATE VEHICLE.
--- NOTE | 2017-02-20 10:53 | DI ---
Indication: ITS.REASON: anemia PROCEDURE: CT ABD/PELVIS W/CONTRAST ONLY: Encounter: Initial Comparison: None Technique: Axial CT images were performed through the abdomen and pelvis after the administration of intravenous contrast. Coronal and sagittal two-dimensional reformats. Automated Exposure Control and Iterative Reconstruction dose reducing techniques were utilized. Contrast: Omnipaque 300 67 mL Findings: Fibrotic changes in both lung bases. The liver shows moderate bile duct dilatation. Gallbladder may be contracted and is difficult to visualize. The spleen is unremarkable. Stomach is distended with fluid. Calcifications in the stomach could be due to ingested medications or submucosal calcs. The pancreas is grossly normal. Minimal intra-abdominal fat limiting the exam. The adrenal glands are not well seen. The kidneys appear normal. No evidence of a bowel obstruction. The bladder is unremarkable. No free air. Bone windows show degenerative changes and scoliosis in the spine. Increased colonic stool burden. Impression: No definite acute disease process seen in the abdomen or pelvis. There is a preliminary report by [facility]. .
--- NOTE | 2017-02-24 14:14 | NUR ---
ATTEMPTED POST [facility] FOLLOW UP PHONE CALL #1, NO ANSWER, LEFT VOICE MESSAGE TO RETURN CALL TO CM.
== END 2017-02-19 11:30 | disposition home or self-care (01) ==
LOC: MED 17:21
PROVIDERS: ADMIT Internal Medicine; ATTEND Internal Medicine
DX: D50.9 Iron deficiency anemia, unspecified (principal); G25.81 Restless legs syndrome; M51.35 Other intervertebral disc degeneration, thoracolumbar region; E03.9 Hypothyroidism, unspecified; M47.895 Other spondylosis, thoracolumbar region; R63.4 Abnormal weight loss; Z68.1 Body mass index [BMI] 19.9 or less, adult; Z63.4 Disappearance and death of family member; R03.1 Nonspecific low blood-pressure reading; K59.00 Constipation, unspecified; Z79.82 Long term (current) use of aspirin; Z79.899 Other long term (current) drug therapy
CPT/HCPCS: 36415; 36430; 74177; 80048; 85025; 86850; 86900; 86901; 86922; 96374; A9270; G0378; J1940; J2405; J7050; P9016; Q9967; 99218

== ENCOUNTER → 2017-03-01 | Outpatient (CLI) | payer MEDICARE, BC ==
[~2017-03-01] MED LIST: ASCO60LO11; AZIT250T PO; CA C-5; CARB1TAB42 PO; CYAN10009 PO; CYAN1TAB14; DOCU-168 PO; GABA-336 PO; LEVO88TA7 PO; MAGN400O4 PO; OMEP20CA10 PO; POLY17PO6 PO; POTA10CA37 PO; SENN8.6T94 PO; [UNRECOGNIZED DRUG - CODE] PO
[2017-03-01 13:14] LABS: ABSOLUTE RETICS # 0.0818 T/MM3 (0.0300-0.0900); BASOPHILS # (AUTO) 0.1 T/MM3 (0-0.2); BASOPHILS % (AUTO) 1.9 % (0-2); EOSINOPHILS # (AUTO) 0.1 T/MM3 (0-0.5); HCT - HEMATOCRIT 34.5 % (36-46); HGB - HEMOGLOBIN 10.7 GM/DL (12-16); IMMATURE GRANULOCYTE # (AUTO) 0.01 T/MM3 (0.00-0.03); IMMATURE GRANULOCYTE % (AUTO) 0.2 % (0.0-0.5); LYMPHOCYTES # (AUTO) 1.1 T/MM3 (1-4.8); LYMPHOCYTES % (AUTO) 19.2 % (23-45); MEAN CORPUSCULAR HGB 29.6 UUG (26-34); MEAN CORPUSCULAR VOLUME 95.3 UM3 (80-100); MEAN PLATELET VOLUME 8.8 UM3 (9.4-12.4); MONOCYTES # (AUTO) 0.6 T/MM3 (0-0.8); MONOCYTES % (AUTO) 9.5 % (0-9.0); NEUTROPHILS % (AUTO) 67.2 % (33-66); RED BLOOD COUNT 3.62 M/MM3 (4.00-5.20); RETICULOCYTE % 2.3 % (0.6-1.7); RETICULOCYTE HGB 39.9 PG (30.8-36.6); WBC - WHITE BLOOD COUNT 5.9 T/MM3 (4.5-11.0)
[2017-03-01 13:31] LABS: ALBUMIN 4.4 G/DL (3.5-5.0); ALBUMIN/GLOBULIN RATIO 1.6 RATIO (1.1-2.2); ALKALINE PHOSPHATASE 77 U/L (38-126); ALT (SGPT) 29 U/L (9-52); ANION GAP 13 MEQ/L (5-15); AST (SGOT) 26 U/L (14-36); BUN/CREATININE RATIO 20 RATIO (6-26); CALCIUM 9.8 MG/DL (8.4-10.2); CHLORIDE 102 MEQ/L (98-107); CO2 - CARBON DIOXIDE 29 MEQ/L (22-30); CREATININE 0.8 MG/DL (0.7-1.2); GLOMERULAR FILTRATION RATE 70; GLUCOSE 99 MG/DL (65-110); LDH 426 U/L (313-618); MAGNESIUM 2.4 MG/DL (1.6-2.3); POTASSIUM 4.4 MEQ/L (3.6-5); SODIUM 144 MEQ/L (134-144); TOTAL PROTEIN 7.2 G/DL (6.3-8.2)
== END ==
LOC: LAB 12:44
PROVIDERS: ATTEND Internal Medicine Hematology & Oncology
DX: D50.8 Other iron deficiency anemias (principal)
CPT/HCPCS: 36415; 80053; 83615; 83735; 85025; 85045